=== PATIENT | female | born 2000 | race Caucasian/White ===

== ENCOUNTER 2023-11-07 08:00 | Outpatient (RCR) | payer OTHER, SELFPAY ==
--- NOTE | 2023-11-07 10:15 | BH.SGPN.GN ---
Behaviors/Verbalizations/Mental Status: [] Eye contact is fair. Motor activity is appropriate. Appearance is casual. Speech is Appropriate. Mood is anxious. Affect is congruent. Thoughts are linear and logical. No evidence of psychosis. Client Response/Progress/Benefit: [] Pt was an engaged participant AEB listening attentively to others, taking notes, and providing feedback in small group discussions. Attentive during psychoeducation AEB by note taking and providing some input. Pt worked along with peers in small groups to define inappropriate guilt and appropriate guilt. Interactive discussion on examples of both inappropriate and appropriate guilt. Pt able to connect impact inappropriate guilt can have on MH. Benefited from increased awareness of guilt and the differences between appropriate and inappropriate guilt. Pt's first day in PHP. Will continue in PHP to maintain safety, improve daily functioning, and prevent decompensation.
--- NOTE | 2023-11-07 11:15 | BH.SGPN.GN ---
Behaviors/Verbalizations/Mental Status: []Pt alert and oriented, casually dressed and groomed. Eye contact good. Motor activity appropriate. Speech within normal limits. Affect congruent, mood depressed. Thoughts linear, logical, no signs of hallucinations or delusions. Client Response/Progress/Benefit: [] Pt engaged participant AEB listening attentively to others and providing input throughout group. Pt worked within their small group to identify strategies to manage inappropriate guilt. Shared a personal example of inappropriate guilt as feeling guilty for taking time off work to address her mental health sx. Insight this cues a fear of disappointing others and leads to overcompensating and becoming overapologetic. Pt wants to work on combatting inappropriate guilt by reframing her negative self-talk and focusing on self-compassion. Pt seemed to benefit from learning about strategies to manage appropriate and inappropriate guilt. Pt will continue PHP tx to reduce depressive symptoms, improve daily functioning, maintain safety, and prevent decompensation. Narrative Note: []
--- NOTE | 2023-11-07 15:30 | BH.MDN_ITS ---
Multi-Disciplinary Note Note 45-min Individual: Time Started:: 12:00 Date: 11/07/23 Purpose of session/treatment goals addressed:: Purpose of session was to assess pt's current symptoms and stressors, gather background information, and prevent decompensation. Eye Contact:: Good Motor Activity:: Restless Appearance:: Casual Speech:: Appropriate Mood:: Anxious Affect:: Congruent Thoughts:: Linear, Logical and No evidence of hallucinations/delusions noted Staff Interventions:: CBT techniques, rapport building, strengths perspective, treatment planning and goal setting Client Response:: Pt reported she was referred to [facility] as part of her discharge plans from [facility] following her suicide attempt via 50 pills of Effexor. Pt stated she was admitted to ICU on she believes 10/27/23 and discharged on 11/01/23. Pt reported she was in the ICU for 2 days and on the medical floor for 3 more days following her suicide via overdose with her Effexor. Pt reported she was not hospitalized on the psychiatric unit because she was no longer activ lisbeth suicidal once she was officially medically cleared. Pt stated her mental health has been declining for the last 6 months. Pt reported the day before she attempted suicide she has the worst day of my life . Pt stated she had been sleep deprived, had a tough day at work, and had 2 panic attacks in front of co- workers. Pt reported she was sent home from work that day because she couldn't manage her emotions. Pt stated the next night is when she attempted suicide because she had convinced herself she had ruined a job that she loves. Pt reported since being released from the hospital she has been feeling less depressed and not having suicidal thoughts. Pt stated she has noticed an increase in her anxious symptoms. Pt reported she has been doing better with getting things done around her house the last 5 days. Pt stated while she is in [facility] she would like to learn how to manage stress better and to work on decreasing her self-hatred. Risks/Concerns:: Pt denies active suicidal ideation, plan, or intention since discharge from hospital last week. Feels able to maintain safety. Does not have access to lethal means. Firearms have been removed from the home and her fianc? has locked up the medications. Pt reported having healthy support system. Progress Toward Goals/Plan:: Progress noted AEB pt reporting no active suicidal thoughts in the last 5 days and decreased depression since discharging from the hospital. Pt appears motivated to learn new skills and to get better. Pt reported increase in her anxious symptoms. Stated improvement in motivation and completing chores. Pt stated she is having some concentration and memory issues, which the hospital told her is a short term side effect from the overdose. Pt is to continue PHP to improve daily functioning, maintain safety, and prevent decompensation. Time Stopped:: 12:50
--- NOTE | 2023-11-07 15:30 | BH.PSA ---
Source of Information Presenting Problems/Circumstances Problems, Referral Source, Mental Status, Client: Pt referred to [facility] by inpatient hospital, [facility], as part of her discharge plans post suicide attempt. Pt stated she was admitted to ICU on she believes 10/27/23 and discharged on 11/01/23. Pt reported she was in the ICU for 2 days and on the medical floor for 3 more days following her suicide via overdose with her Effexor. Pt reported she was not hospitalized on the psychiatric unit because she was no longer actively suicidal once she was officially medically cleared. Pt stated her mental health has been declining for the last 6 months. Pt reported the day before she attempted suicide she has the worst day of my life . Pt stated she had been sleep deprived, had a tough day at work, and had 2 panic attacks in front of co-workers. Pt reported she was sent home from work that day because she couldn't manage her emotions. Pt stated the next night is when she attempted suicide because she had convinced herself she had ruined a job that she loves. Pt Past Psychiatric History MH Treatment Hx Treatment History: Hasn't been in counseling since she was 15 years old. Started seeing a provider for psych meds about 2 years ago. First hospitalization:: Age 12 [facility] for suicidal ideation. Most recent hospitalization:: Age 14 [facility] for suicide attempt for OD ECT Therapy:: No Describe (age, circumstance, etc) any past hospitalizations: Pt states from ages 12 to 14 years old she was hospitalized about 5-6 times for suicidal ideation. Pt stated her last hospitalization as an adolescent was a suicide attempt in which she took pills and was on ICU for 2 days. Pt reported she did attempt suicide less than 2 weeks ago, but was not hospitalized on the psychiatric unit. Development & Family of Origin Childhood Significant Childhood Events: States her parents were older and has an old school mentality about mental health. Pt states she felt emotionally neglected as a child, especially from her dad. Pt reports she was not close to either parent when she was growing up. Pt states her parents told her to get over her mental health struggles and believed at the time she was struggling as a way to get attention. Family Who currently lives in your home?: Lives with fianc? Describe family composition:: The patient was born and raised in [place]. She was never close with her parents because she felt they were like roommates rather than family. Her father neglected her emotionally and both parents believe she was faking her mental health symptoms to get attention. She is a middle child has 1 brother 1-year-old and a sister 1 year younger than her and got along with them. She says her relationship with her parents has improved lately and she does have contact with them. She lives with her fianc? and cats and he is supportive of her. Family History Family Hx of Psychiatric or AOD Problems: [] Patient states her family has a lot of mental health issues but they are mostly undiagnosed. Father has depression and anxiety. Sister has severe OCD and anxiety. Brother has depression and substance abuse issues for which he has been to rehab several times. No completed suicides in the family. Ethnicity Culture Do you identify yourself with any particular cultural, ethnic background, or community?: No Sexuality Sexual Orientation: Heterosexual Spirituality Mormon Do you currently identify with any organized christianity?: None Beliefs Is there a particular form of support from this community you can use for your recovery?: No Mental Status Memory Recent Memory: Poor Remote Memory: Poor Concentration Concentration: Poor Eye Contact Eye Contact: Fair Speech Speech: Articulate Thought Process Thought Process: Logical Insight: Fair Judgment: Fair Behavior: Anxious Orientation Orientation: Time, Person, Place and Situation Mood Mood: Anxious Affect Affect: Alert Suicide Assessment Suicidal Ideation Have you ever felt like hurting yourself?: Yes Suicidal Intentional Rating Scale (SIRS): Suicidal thoughts (past) Physician Notification Violent Behavior/Abuse History Homicidal Ideation Do you have any homicidal thoughts? If so, explain:: No Is there a known potential victim? If yes, who:: No Abuse Have you ever been abused?: No Safety Do you ever feel threatened in your home? If yes, describe:: No Adult Social History Age 17 to Present Describe your current support system:: States fimaya?, work friends, and her family are her support network. Substance Use Substance Substance Use Type: Alcohol, Marijuana, Tobacco and Caffeine Specific Drugs What specific drugs have you used?: Patient vapes nicotine daily and smokes cigarettes only on occasion socially. For about 6 months prior to her recent psych admit on October 28, 2023 the patient was drinking for 5 days a week and was drinking 3-6 shots of hard liquor each day. She denies blackouts, morning drinking or withdrawal. She has no liquor in the house now and drinks only 1 or 2 glasses of wine or 2 beers since out of the hospital. She was using THC Gummies and vaping marijuana before her admission but has not used any since then. No rehab ever and no other drugs. 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 Service Service Have you ever been in the ?: No Legal History Records Have you had any past legal charges?: No Do you have any current legal charges?: No Have you ever been incarcerated? If yes, describe:: No Court Orders Have you had any past court orders for psychiatric treatment?: No Do you have a present court order for psychiatric treatment?: No Problem Checklist Current Problem Areas Problem List: Depressed mood/sad, Anxiety, Inattention, Impulsivity and Substance use (has decreased alcohol use significantly since d/c from hospital. Hasn't used marijuana since d/c from hospital. 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 The patient took about 50 Effexor capsules on October 28 and was admitted to the ICU for 2 days and then in the stepdown unit for a number of days. She had a seizure due to the serotonin syndrome. She was not admitted to psychiatry as she they felt she was safe to going to [facility] by the time she got out of the stepdown unit Patient states that for 6 months she has had these depressive symptoms that she feels were made worse by stresses at work and decreased sleep due to working three 12-hour shifts in a row. She has been on FMLA since her suicide attempt which she stated was triggered by having panic attacks in front of her coworkers at work 1 day. Prior to the overdose she was sleeping 15 to 20 hours/day due to her depression. She has not been suicidal since she got out of the hospital. Concentration has been decreased and she has occasional hopelessness, worthlessness endorses guilt. She denies any PTSD symptoms like flashbacks, avoidance or hypervigilance. She does admit to thoughts of self-harm and she last cut herself 1 month ago. Treatment Plan Recommendations Recommendations Guidelines Recommendations:: The patient will start the Partial Hospitalization Program in behavioral health at [facility] as the structure, support, education and group therapy will hopefully prevent worsening of the patient's symptoms that could require rehospitalization.
--- NOTE | 2023-11-07 15:31 | BH.MTP_ITS ---
Master Treatment Plan Patient Information Program Physician:: Dr. Pathak Primary Therapist:: Casi Ohara, [facility] Psychiatric Diagnoses Psychiatric Diagnoses:: 1. Major depressive disorder recurrent severe without psychosis 2. Generalized anxiety disorder 3. Alcohol use disorder 4. Chronic tic disorder Diagnosis Code(s):: F33.2 Estimated LOS Estimated LOS (in weeks):: 2 Problem/Goal #1 Problem/Goal #1 Stated Goal:: Client will decrease depressive symptoms, isolation, and agitation due to Major Depressive Disorder. Description of Barriers: Potential barriers include hx of unresponsiveness to medications, perfectionism, high expectations, anxious thoughts, and cognitive distortions. Functional Impact: The patient is a 23-year-old single female with a history of depression, anxiety, chronic tic disorder who was referred to the [facility] behavioral health PHP by [facility] due to a recent psychiatric admit (October 28 to November 01, 2023) for depression and a suicide attempt. Patient states that for 6 months she has had these depressive symptoms that she feels were made worse by stresses at work and decreased sleep due to working three 12-hour shifts in a row. She has been on FMLA since her suicide attempt which she stated was triggered by having panic attacks in front of her coworkers at work 1 day. Prior to the overdose she was sleeping 15 to 20 hours/day due to her depression. She has not been suicidal since she got out of the hospital. Concentration has been decreased and she has occasional hopelessness, worthlessness endorses guilt. Objectives Objective #1: Stated Objective: Client will learn and utilize 2-3 healthy coping strategies to manage depressive symptoms. Interventions: Therapist will utilize CBT techniques to assist client with understanding the connection between thoughts, feelings and behaviors. Education will be provided on behavioral activation. Therapist will assist client in learning internal coping strategies to manage depressive symptoms, along with helping client identify triggers. Discharge Criteria: Client will have achieved this goal when can verbalize and has practiced at least 2 healthy coping strategies that successfully manage depressive symptoms. Target Date: 11/17/23 Objective #2: Stated Objective: Client will work with therapist to develop a crisis plan which includes emergency telephone numbers, 3-4 coping strategies for SI, lists of supports, positive aspects of life, and motivations. Interventions: Therapist will provide patient with safety plan worksheet and work with pt. to develop individualized plan. Discharge Criteria: Client will have achieved this goal once completes safety plan and is able to utilize coping and thought replacement strategies. Target Date: 11/17/23 Problem/Goal #2 Problem/Goal #2 Stated Goal:: Stabilize anxiety level while increasing ability to function on daily basis. Description of Barriers: Potential barriers include hx of unresponsiveness to medications, perfectionism, high expectations, anxious thoughts, and cognitive distortions. Functional Impact: The patient is a 23-year-old single female with a history of depression, anxiety, chronic tic disorder who was referred to the [facility] behavioral health PHP by [facility] due to a recent psychiatric admit (October 28 to November 01, 2023) for depression and a suicide attempt. Patient states that for 6 months she has had these depressive symptoms that she feels were made worse by stresses at work and decreased sleep due to working three 12-hour shifts in a row. She has been on FMLA since her suicide attempt which she stated was triggered by having panic attacks in front of her coworkers at work 1 day. Prior to the overdose she was sleeping 15 to 20 hours/day due to her depression. She has not been suicidal since she got out of the hospital. Concentration has been decreased and she has occasional hopelessness, worthlessness endorses guilt. Objectives Objective #1: Stated Objective: Client will learn and implement 2-3 calming skills to reduce overall anxiety and manage anxiety symptoms. Interventions: Therapist will teach calming/relaxation skills and how to apply these skills to everyday life. Discharge Criteria: Client will have achieved this goal when can verbalize and consistently utilize at least 2 calming strategies that client reports help decrease anxious symptoms. Target Date: 11/17/23
--- NOTE | 2023-11-08 09:05 | BH.SGPN.GN ---
Behaviors/Verbalizations/Mental Status: [Patient was alert and oriented, appropriately dressed and groomed. Eye contact was good, motor activity normal, speech within normal limits. Affect congruent, mood anxious. Thoughts linear, logical, no signs of hallucinations or delusions. Reviewed Patients symptom tracker and the patient reports depressed mood, anxiety/panic attacks, agitation/irritability/anger, self-harm urges, and thoughts/risk of suicide within normal limits.] Client Response/Progress/Benefit: [Patient was engaged and open to the discussion. Patient reported her mood to be ?Uneasy?. Patients wins and stressors all go together. Patient stated that yesterday she had company come over and help her and her fianc? clean the upstairs of her house and did 7 loads of laundry that had been sitting for ?months?. Patient admitted that she flipped out on her fianc? because he did something that made her suddenly feel as if her cats lives were at stake although she said she ?knows that was an overreaction?. She shared that she wanted to be honest with the group and tends to lie about things, so people won?t worry about her so by telling us that was big. She shared that she felt so ashamed for her reaction that she ?put herself in timeout? and laid in bed for hours and cried until she fell asleep. Patient was interactive and respectful with other group members about their mental wins and stressors. Patient benefited from the discussion by listening to feedback and giving input on her peer?s stressors and mental health wins. Patient will continue with IOP treatment to help develop healthy skills, promote mood stability, and improve distress tolerance. ] Narrative Note: []
--- NOTE | 2023-11-08 10:45 | BH.NA_ITS ---
Physical Data Vital Signs Pulse Rate: 74 Blood Pressure: 146/86 Height/Weight Height: 1.65 m Weight:: 68.039 kg Weight in Pounds: 150.0 lbs Current Medication Compliance Medication Compliance Do you take your medication as prescribed?: Yes Nutritional History Appetite Nutritional Instructions: Describe your appetite:: Fair Additional nutritional information:: Client states she lost about 5 lbs during her recent hospitalization and admits she does have a tendency to skip meals. Functional Assessment Sleep Pattern Describe any problems with sleeping: Client states since her discharge from the hospital a week ago, she is sleeping about 8 hours per night. Activities Motor Activity:: Other (client states she does have some jerking motions of her legs at times) Sensory/Communication Assess Vision Problems Do you have any vision problems?: Glasses Communication Problems Do you have difficulty understanding what people are saying?: No Medical Problems/History Cardiac Conditions Cardiovascular: Other (See comments) (high cholesterol- not on medication) Neurological Conditions Neurological: Other (See comments) (recently worked up neurologically for weakness/tingling/jerking in legs- MS was ruled out, no diagnosis given. Client states she still has some jerking at times with legs but states overall weakness/tingling in legs has gone away.) Pain Assessment Do you have acute or chronic pain?: No Surgical History Surgical History Have you had any surgeries? If so, list type and date:: Yes (wisdom teeth, left breast biopsy 2019) Substance Abuse Substance Abuse Please describe substance abuse in the last 30 days:: Client states prior to being in the hospital, she was using alcohol 3-4 days per week, 2-3 shots of liquor as a coping mechanism. Client states she no longer has liquor at home, states now since her discharge a week ago she has had 1-2 beers or glasses of wine about 4 days this week. Client states she vapes nicotine daily and at times does smoke cigarettes. Client denies current substance use, stating she had been using THC gummies but no longer does. Client drinks 1-3 cups of coffee per day. Mental Status Summary Mental Status Significant Findings/Observations on Appearance and Mood:: Client is alert and oriented x 4. Client is casually groomed with good hygiene. Client is cooperative with assessment. Client makes good eye contact. Client's voice has normal rate and volume. Client has appropriate affect. Client makes logical associations and normal processing. Client denies delusions/hallucinations. Client denies current SI. Suicide Assessment Suicidal Ideation Are you currently or have you been suicidal in the past?: Yes Suicidal Intentional Rating Scale (SIRS): Suicidal thoughts (past) (denies current SI, does states she had self-harm thoughts last night but did not) Physician Notification Past Psychiatric History MH Treatment Hx Past Psychiatric Medications:: Effexor (recently in the hospital due to overdose), SSRI's as an adolescent (client states she never remembers any of them working well), Cymbalta and Lamictal (she states didn't help at all), Abilify, Wellbutrin Age of first mental health symptoms: Client states she had several mental health hospitalizations as a teenager and was first on medication for mental health at that time. Describe (age, circumstance, etc) any past hospitalizations: Recently in ICU/medical floor at [facility] 10/28-11/01/23 after a suicide attempt by Effexor overdose. Current providers for mental health treatment (counselor, psychiatrist, social work case manager, etc.): Dr. Anup Caban at [facility] Fall Risk Assessment Age Age: Less than 60 Mental Status Mental Status: Willing & able to ask for assistance when needed Physical Status Physical Status: No problems Impairments Impairments: None Elimination Elimination: Continent AND independent Gait or Balance Gait or Balance: Walks independently Hx of Falls History of falls in the past 6 months: No known history Medications/Substances Psychotropics:: Antidepressants and Antipsychotics Medications/substances used within the past 24 hours or ordered to administer: 1-2 of the medications/substances listed above Total Score Total Points:: 1 RN Summary of Impressions Impressions Recommendations Impressions: Psychiatric Issues: 1. Major depressive disorder recurrent severe without psychosis 2. Generalized anxiety disorder 3. Alcohol use disorder 4. Chronic tic disorder Level of Care How do the client's current symptoms and functional deficits support need for this level of care?: Client was referred to [facility] after a recent hospitalization due to a suicide attempt by overdose of Effexor. 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 Client states she had several panic attacks at work in one day and had to leave work and was embarrassed that all her co-workers saw her crying and upset and felt like no one would respect her after that. This event triggered her suicide attempt. Client states for the last 4-6 months, she feels she has been very sleep deprived, working three 12 hour shifts in a row and only sleeping up to 3-4 hours between shifts. Client also states she had been using THC gummies and using several shots of liquor on her days off to cope. Client states she is using less alcohol now and completely got rid of the THC gummies. Client denies SI at this time. IOP will promote gains and prevent further decompensation while providing social support and skills training.
--- NOTE | 2023-11-08 11:10 | BH.SGPN.GN ---
Behaviors/Verbalizations/Mental Status: []Pt alert and oriented, neatly dressed and groomed. Eye contact good. Motor activity appropriate. Speech within normal limits. Affect constricted, mood depressed. Thoughts linear, logical, no signs of hallucinations or delusions. Client Response/Progress/Benefit: []Pt responded well to session, engaged in the experiential activity and attentive throughout group processing. Pt reported fear of failure has kept Pt getting mental health tx in the past and from starting medications. Pt completed fear of failure worksheet and was able to identify thoughts and behaviors that reinforce personal fear of failure including self-doubt, past failures, and negative/distorted thought patterns. Pt participated in group discussion regarding strategies to overcome fear of failure. Identified wanting to work on practicing setting boundaries at work, reminding herself that she cannot ?do it all.? Appeared to benefit from increased knowledge of strategies to combat fear of failure and gaining self-awareness. Pt will continue PHP tx to prevent rehospitalization and maintain safety. Narrative Note: []
[2023-11-08 11:33] VITALS: BP 146/86; PULSE 74
--- NOTE | 2023-11-08 11:58 | PCM.BH.PSYEV ---
Psychiatric Evaluation Initial Evaluation Initial Evaluation: History of Present Illness: [] The patient is a 23-year-old single female with a history of depression, anxiety, chronic tic disorder and recent bipolar disorder diagnosis who was referred to the [facility] behavioral health [facility] by [facility] due to a recent psychiatric admit (October 28 to November 01, 2023) for depression and a suicide attempt. The patient took about 50 Effexor capsules on October 28 and was admitted to the ICU for 2 days and then in the stepdown unit for a number of days. She had a seizure due to the serotonin syndrome. She was not admitted to psychiatry as she they felt she was safe to going to [facility] by the time she got out of the stepdown unit. Patient states that for 6 months she has had these depressive symptoms that she feels were made worse by stresses at work and decreased sleep due to working 312-hour shifts in a row. She has been on FMLA since her psych admission as her suicide attempt was triggered by having panic attacks in front of her coworkers at work 1 day. Patient currently lives with her fianc? of 18 months and her cats. Their relationship is good and he is supportive of her and he also works as a psychiatry nurse. 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 For primary support she has her fianc?. Patient is currently enjoying her friends and the idea of her work. She is getting about 8 to 10 hours of sleep at night. Prior to the overdose she was sleeping 15 to 20 hours/day due to her depression. She drinks 1 to 2 cups of coffee per day. Concentration has been decreased and she has occasional hopelessness, worthlessness endorses guilt. She also is a worrier by nature and ruminates negatively. She denies passive thoughts of , suicidal ideation, plan for suicide, homicidal ideation, hallucinations, delusions or symptoms of otto ever. She has not been suicidal since she got out of the hospital. She has a history of a chronic tic disorder which involves only physical tics mostly with her hands but this has not been severe lately. She has no auditory tics. She has some OCD tendencies but does not meet criteria for OCD although she has some preoccupation with order and checking at times. The patient states that her father was neglectful of her during childhood and did not emotionally support her. She says that her father's thought she was faking her mental health symptoms when she was young and told her she needed to stop . She denies any PTSD symptoms like flashbacks, avoidance or hypervigilance. She does admit to thoughts of self-harm and she last cut herself 1 month ago. The patient's fianc? gives her her medications and she does not have access to a large amount of medications. Current Psychiatric Medications: [] Latuda 20 mg p.o. with dinner daily (x 8 or 9 days); Prozac 20 mg p.o. daily (x 8 or 9 days); hydroxyzine 50 mg as needed for sleep/anxiety. Past Psychiatric History: [] The patient had 1 psych admit as noted above in 2023 and she had 5 psychiatric admissions between the ages of age 12 and 14. She also had a suicide attempt in 2019 by an overdose on Klonopin. She has a history of self-harm cutting her arms and thighs and first cut at age 11 but has gotten less that she has gotten older. She has never had stitches. Past psych meds include all the SSRIs as a teenager and Wellbutrin and Abilify. Substance Use History: [] Patient vapes nicotine daily and smokes cigarettes only on occasion socially. For about 6 months prior to her recent psych admit on October 28, 2023 the patient was drinking for 5 days a week and was drinking 3-6 shots of hard liquor each day. She denies blackouts, morning drinking or withdrawal. She has no liquor in the house now and drinks only 1 or 2 glasses of wine or 2 beers since out of the hospital. She was using THC Gummies and vaping marijuana before her admission but has not used any since then. No rehab ever and no other drugs. Allergies: [] Bactrim Medications: [] Jessica for allergies, control pill, vitamin D3, omega-3 and women's vitamin. Past Medical History: [] She had a breast biopsy in 2019 which was benign. High cholesterol. Seasonal allergies. Serotonin recently as noted in present illness. Up-to-date on vaccinations. Family Psychiatric History: [] Patient states her family has a lot of mental health issues but they are mostly undiagnosed. Father has depression and anxiety. Sister has severe OCD and anxiety. Brother has depression and substance abuse issues for which he has been to rehab several times. No completed suicides in the family. Personal/Social History: [] The patient was born and raised in [place]. She was never close with her parents because she felt they were like roommates rather than family. Her father neglected her emotionally and both parents believe she was faking her mental health symptoms to get attention. She is a middle child has 1 brother 1-year-old and a sister 1 year younger than her and got along with them. She says her relationship with her parents has improved lately and she does have contact with them. She states they now know she is not faking her symptoms. She lives with her fianc? and cats and he is supportive of her. He is also working as a psych nurse. 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 She has worked at [employer] in [place] for over 2 years. She is single with no children and has never been or . She was perfectionistic but school was always easy for her. But she states that her OCD tendencies and perfectionism tendencies would make it take a long time for her to finish her homework. She graduated from [employer] and [employer] with a degree in nursing. For primary support she has her coworkers, sister, mom and fianc?. Legal History: [] No arrests. 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 No DUIs. Review of Systems: [] Positive for occasional dizziness after the recent overdose. She has occasional lower extremity muscle pain and soreness. Last menstrual period was October 31 and she has regular menstrual periods and is sexually active with her fianc?. She is 0 para 0 female. Vital Signs: [] Vital signs are reviewed in the nurses notes and updated in the patient is deemed medically able to participate in the [facility] program. Mental Status Examination: [] Patient is a 23-year-old female who wears glasses and appears normal for stated age and is casually dressed and groomed with good hygiene. She has no psychomotor agitation or retardation and is ambulatory with a normal gait. Speech is normal rate and rhythm and fluent with no pressure and eye contact is fair. Mood is depressed and anxious. Affect is constricted. Thought process is goal-directed and organized. Thought content: There is no evidence of passive thoughts of , suicidal ideation, plan for suicide, homicidal ideation, hallucinations or delusions. There is evidence of thoughts of self-harm but no actions on this. Reality testing is intact. Intelligence is above average. Judgment is intact. Insight is fair. Impulsivity is moderate. Diagnoses: [] 1. Major depressive disorder recurrent severe without psychosis 2. Generalized anxiety disorder 3. Alcohol use disorder 4. Chronic tic disorder 5. Work issues Plan: [] The patient will start the IOP in behavioral health at [facility] as the structure, support, education and group therapy will hopefully prevent worsening of the patient's symptoms that could require rehospitalization. She felt safe during the interview and if it anytime she does not feel safe she will let us know or go to the emergency room. The risk, options, possible complications and side effects of the medications were discussed with the patient and she understands accepts these. No medication changes were made today as they were changed only 9 days ago following her overdose on Effexor. At some point I might consider Prozac's long half-life to be not the best choice for patient with 2 suicide attempts by overdose and recent serotonin syndrome as the long half-life of Prozac would prolong the serotonin syndrome if she did overdose. The patient states that her fianc? is a psych nurse and he gives her medications so she is not worried about this. She will continue to follow-up with her outpatient providers and I will see the patient in follow-up in 1 week.
--- NOTE | 2023-11-08 12:13 | BH.DR.ITP ---
Initial Treatment Plan Patient Information Visit Information: ADMISSION DATE: EXPECTED LOS: 4-6 weeks Problems/Symptoms Problem #1:: Depression Symptom:: Sadness, hopelessness, worthlessness, guilt, decreased concentration, biological disruption of sleep, recent passive thoughts of and recent suicidal ideation, thoughts of self-harm Problem #2:: Anxiety Symptom:: Worry, rumination, panic attacks
--- NOTE | 2023-11-08 14:48 | BH.MDN ---
Multi-Disciplinary Note Note 60-min Individual: Time Started:: 12:05 Date: 11/08/23 Purpose of session/treatment goals addressed:: Purpose of session was to address goals 1 and 2 from [facility]. Eye Contact:: Good Motor Activity:: Appropriate Appearance:: Casual Speech:: Appropriate Mood:: Dysthymic Affect:: Congruent Thoughts:: Linear, Logical and No evidence of hallucinations/delusions noted Staff Interventions:: thought challenging, psychoeducation on: (cognitive triangle, behavior activation, and core beliefs), CBT techniques, rapport building, strengths perspective, completed risk assessment / safety planning (completed crisis plan in session), goal setting and other (homework provided to complete provided questionnaire about mistaken beliefs.) Client Response:: Client responded well to session as evidenced by openly sharing thoughts and feelings. Client reported yesterday she had a rougher afternoon/evening because she was more irritable and snapped at her fianc?. Client shared she can be very protective of her cats and when he was cleaning she thought he was putting the cleaning stuff on her cats so she snapped at him. Client stated she went upstairs because she was upset with herself. Client stated she was able to recover quicker than usual initially by going down apologizing to her fianc?. However after apologizing and her fianc? accepting the apology and recognizing that she is more irritable with the medication changes she still feels extreme guilt. Client stated appropriate guilt turned into inappropriate guilt and she punished herself for the next 6 hours by laying in bed and self-deprecating. Client reported in the moment she recognized what she was doing would not be helpful but she stated she has extreme difficulty with making herself get out of bed to do something that would be more helpful for her. Client reported she was having negative thoughts that she should not come back to [facility] because it will help her and she should just lie about how she is doing. Client stated on a positive note she did decide to come back to [facility] today and was honest about how her evening went. Client connected to psychoeducation about cognitive triangle and behavior activation. Client reported she was not sure what would help her with opposite action when she is in a downward spiral. Therapist attempted to help her problem solve and brainstormed various solutions or strategies and encouraged client to just try out different ones until she finds when that works. Client did connect with dialectical thinking especially the statement I can be struggling and progressing. Client engaged in discussion about negative core beliefs and willing to complete provided questionnaire to help her identify her mistaken beliefs. Client worked with therapist to complete a crisis/safety plan that can help her in the moment. Client able identify triggers, warning signs, healthy coping skills, reasons for living, supports can reach out to, reduction of lethal means, and crisis support numbers. Client reports she did not have a safety plan because when she was discharged from the hospital she was discharged from the medical side and not the psychiatric side. Risks/Concerns:: Denies active suicidal ideation, plan or intention. Future oriented. Identifies family and cats as protective factor. Client completed crisis plan today. No access to lethal means. Progress Toward Goals/Plan:: Client reported slight decompensation in symptoms as evidenced by experiencing low and depressed mood yesterday after irritable lash out. Client stated she does struggle with getting herself out of depressed moments because she admitted at times she likes to wallow in the negativity. Client stated she logically recognizes sitting in her depressed mood will not be helpful. Client did seem a little hesitant to try out new strategies or solutions when she is in a depressed state. Therapist attempting to use motivational interviewing as strategy to increase client's motivation to follow through with new skills and strategies. Client to continue PHP to maintain safety, increase healthy coping, and prevent decompensation. Time Stopped:: 13:00
--- NOTE | 2023-11-09 09:00 | BH.SGPN.GN ---
Behaviors/Verbalizations/Mental Status: [] Eye contact is good. Motor activity is appropriate. Appearance is casual. Speech is Appropriate. Mood is depressed/irritable. Affect is congruent. Thoughts are linear and logical. No evidence of psychosis. Reviewed daily check in sheet and no reports of suicidal ideations or intent. Client Response/Progress/Benefit: [] Pt participated at times during the group discussion. Attentive. Shared that cried and isolated and snapped at her fiance recently and has noticed that her mood is erratic since medication changes a couple weeks ago with increased irritability. She was struggling yesterday with her emotions and ruminations however was able to change her perspective during psychoeducation group yesterday. Insight that she can have a bad moment and struggles and still be progressing. Challenging cognitive distortion of absolute thinking. This perspective change led to reframing thoughts and improved overall mood and view of herself. Progress noted per pt report. Benefited from group support, encouragement, and feedback. Will continue in PHP to maintain safety, prevent decompensation/readmission to psych unit, and to improve functioning to return to work. Narrative Note: []
--- NOTE | 2023-11-09 10:10 | BH.SGPN.GN ---
Behaviors/Verbalizations/Mental Status: []Pt alert and oriented, casual appearance. Eye contact fair. Motor activity appropriate. Speech within normal limits. Affect congruent, mood anxious. Thoughts linear, logical, no signs of hallucinations or delusions. Client Response/Progress/Benefit: [] Client engaged participant AEB completing self-assessment worksheet and providing input throughout discussion. Client completed worksheet identifying current self-care practices and what self-care activities client wants to start using. Client selected emotional and psychological self-care to begin practicing more consistently. Client plans to do this by using opposite action and taking time to do things she enjoys. Appeared to benefit from completing the self-care evaluation and gaining insights into current self-care practices, as well as identifying areas in which client would like to improve upon. Client will continue PHP tx improve daily functioning, increase healthy coping, and prevent decompensation.
--- NOTE | 2023-11-09 11:10 | BH.SGPN.GN ---
Behaviors/Verbalizations/Mental Status: []Pt alert and oriented, appearance appropriate. Eye contact good. Motor activity appropriate. Speech within normal limits. Affect congruent, mood depressed. Thoughts linear, logical, no signs of hallucinations or delusions. Client Response/Progress/Benefit: [] Client engaged participant AEB completing self-assessment worksheet and providing input throughout discussion. Client completed worksheet identifying current self-care practices and what self-care activities client wants to start using. Client selected physical and financial self-care to begin practicing more consistently. Client plans to do this by being more consistent with 3 meals a day and waiting a few days before purchasing something. Appeared to benefit from completing the self-care evaluation and gaining insights into current self-care practices, as well as identifying areas in which client would like to improve upon. Client will continue PHP tx to reduce depression, improve healthy coping repetoire, and prevent decompensation. Narrative Note: []
--- NOTE | 2023-11-09 15:09 | BH.MDN ---
Multi-Disciplinary Note Note 45-min Individual: Time Started:: 12:10 Date: 11/09/23 Purpose of session/treatment goals addressed:: Purpose of session was to address goals 1 and 2 from MTP. Eye Contact:: Good Motor Activity:: Appropriate Appearance:: Casual Speech:: Appropriate Mood:: Euthymic Affect:: Congruent Thoughts:: Linear, Logical and No evidence of hallucinations/delusions noted Staff Interventions:: CBT techniques, rapport building, strengths perspective, goal setting and taught coping skills (Affirmations) Client Response:: Client reported yesterday was a much better day for her. Client stated hearing about dialectical thinking yesterday in group was very useful and changed her perspective for the rest of the day. Client stated the thought I can be struggling and progressing to be a very helpful and motivating statement for her. Client stated yesterday she spent time with her fianc? working on a project around the house that they need to get done. Client reported felt positive to see the outcome of their project and to be able to stay in the moment. Client noted significant improvement in her mood compared to yesterday. Client did complete provided homework of filling out mistaken beliefs questionnaire. Therapist informed client they will look at the results tomorrow. Therapist provided client with handout about various affirmations and client took time in session to highlight the affirmations that she is ready to start working on. Client picked 3 affirmations from the list that she will start saying every day to start building new core beliefs. Client reported she will write the affirmations on her bathroom mirror so that she visually sees in each day and will say them. Risks/Concerns:: Denies suicidal ideation, plan, or intention. Future oriented. Feels able to maintain safety. Progress Toward Goals/Plan:: Progress noted with client being able to challenge her negative thought patterns yesterday. Client starting to work on using dialectical thinking and recognizes that the power and in her statements. Client stated that this will be beneficial because she often struggles with all or nothing thinking. Client does report improved mood since had a positive day yesterday. Client is to continue PHP to maintain safety, increase healthy coping, and prevent decompensation. Time Stopped:: 12:50
--- NOTE | 2023-11-10 09:00 | BH.SGPN.GN ---
Behaviors/Verbalizations/Mental Status: [Patient was alert and oriented, appropriately dressed and groomed. Eye contact was good, motor activity normal, speech within normal limits. Affect congruent, mood content. Thoughts linear, logical, no signs of hallucinations or delusions. Reviewed Patients symptom tracker and the patient reports depressed mood, anxiety/panic attacks, agitation/irritability/anger, self-harm urges, and thoughts/risk of suicide within normal limits.] Client Response/Progress/Benefit: [Patient was engaged and open to the discussion. Patient reported her mood to be ?motivated?. Patients first win is that in the last couple of days, her memory has been improving. She shared that since her overdose, her mind was foggy, and she was unable to retain some information. Patients second win is that she has been able to get herself to do some of her chores that she has been struggling with the past year and a half. Patients stressor is that she is still experiencing irritability. Patient was interactive and respectful with other group members about their mental wins and stressors. Patient benefited from the discussion by listening to feedback and giving input on her peer?s stressors and mental health wins. Patient will continue with IOP treatment to help develop healthy skills, promote mood stability, and improve distress tolerance. ] Narrative Note: []
--- NOTE | 2023-11-10 10:10 | BH.SGPN.GN ---
Behaviors/Verbalizations/Mental Status: []Client alert and oriented, casually dressed and groomed. Eye contact good. Motor activity appropriate. Speech within normal limits. Affect congruent, mood anxious. Thoughts linear, logical, no signs of hallucinations or delusions. Client Response/Progress/Benefit: []Client receptive to session AEB providing input throughout, listening attentively to others, and taking notes. Attentive throughout psychoeducation on the cognitive triangle and maintenance cycles. Engaged in group discussion reviewing the impact of daily activities and behaviors in either reinforcing unhealthy maintenance cycles and depression or assisting in reducing symptoms (?down? vs ?up? activities). Client identified common ?down? activities they engage in as: sleeping past noon, not showering, and using too much alcohol. Common ?Up? activities client identified included:going outside, socializing, and walking. Appeared to benefit from increased awareness of current behaviors and impact these have on mental health. Recommended to continue PHP tx to improve daily functioning, maintain safety, and prevent decompensation.
--- NOTE | 2023-11-10 10:24 | BH.MDN_ITS ---
Multi-Disciplinary Note Note 45-min Individual: Time Started:: 08:15 Date: 11/10/23 Purpose of session/treatment goals addressed:: Purpose of session was to address goals 1 and 2 from MTP. Eye Contact:: Good Motor Activity:: Appropriate Appearance:: Casual Speech:: Appropriate Mood:: Euthymic Affect:: Congruent Thoughts:: Linear, Logical and No evidence of hallucinations/delusions noted Staff Interventions:: CBT techniques, mindfulness skills, rapport building, discharge planning, strengths perspective, goal setting, taught coping skills ([facility]) and other (reviewed mistaken beliefs questionnaire results ) Client Response:: Pt reported yesterday went well with improved mood and ability to manage her emotions. Patient stated she followed through with homework of writing on her bathroom mirror 3 positive affirmations that she wa nts to say to herself daily. Patient reports she believes this will be helpful in recreating different healthier core beliefs. Therapist reviewed client's mistaken beliefs questionnaire results. Client connected with the core beliefs that she scored higher in. Client stated the core belief if I trust or get too close, I will lose control. It is one of her deeply held beliefs which impacts her desire and follow through with with intimacy with others. Client also reported connecting strongly with the core belief I have to be perfect . Client stated her needing to be perfect in certain areas of life have led to her to overwork, overcompensate, and engage in negative self-talk when she makes mistakes. Client also connected with core belief my worst insecurity depend on the approval of others. Client stated this core belief leads her to try to put others first at that because of her own mental health and has difficulty setting boundaries or saying no. Client stated the latter thought she intellectually knows are not true but continues to emotionally and behaviorally impact her. Client connected with psychoeducation about how setting boundaries can be a behavioral way of challenging some of his core beliefs because it helps her see the importance of taking care of herself and not putting herself in the back burner. Client stated positive affirmations she had chosen and wrote on her mirror could also help with creating new internal thought patterns about herself. Stated she will start the [employer] journal this weekend. Risks/Concerns:: Denies suicidal ideation, plan, or intention to date. future oriented. Progress Toward Goals/Plan:: Progress noted with client reporting improved motivation, decreased depression, no active suicidal ideation, and improved daily functioning the last 3 days. Pt also noted improvement with being able to recover from having depressed and isolative evening on Monday this week. Plan is for pt to continue PHP on Monday and Monday next week and admit to IOP on Monday. Pt is to continue PHP to maintain gains, increase healthy coping, and prevent decompensation. Time Stopped:: 08:59
--- NOTE | 2023-11-10 11:15 | BH.SGPN.GN ---
Behaviors/Verbalizations/Mental Status: [] Eye contact is good. Motor activity is appropriate. Appearance is casual. Speech is Appropriate. Mood is depressed. Affect is congruent. Thoughts are linear and logical. No evidence of psychosis. Client Response/Progress/Benefit: [] Pt responded well to session, attentive and engaged in group discussions and activity. Group discussed values and the benefits that knowing one's values can have on one's mental health. Pt explored own values and identified personal top values. Pt stated a personally important value is family relationships. Client set a goal to improve engagement in this value. Goal identified as opening up to her family about her mental health on a more regular basis. Pt appeared to benefit from exploring values and creating a weekly goal. Will continue in PHP to improve application of healthy coping skills, promote mood stability, and prevent decompensation. Narrative Note: []
--- NOTE | 2023-11-13 09:05 | BH.SGPN.GN ---
Behaviors/Verbalizations/Mental Status: [Patient was alert and oriented, appropriately dressed and groomed. Eye contact was good, motor activity normal, speech within normal limits. Affect congruent, mood stressed. Thoughts linear, logical, no signs of hallucinations or delusions. Reviewed Patients symptom tracker and the patient reports depressed mood, anxiety/panic attacks, agitation/irritability/anger, self-harm urges, and thoughts/risk of suicide within normal limits.] Client Response/Progress/Benefit: [Patient was engaged and open to the discussion. Patient reported her mood to be ?uneasy and stressed?. Patient reported this weekend was a ?terrible weekend?. Patient shared that her stressors are that she got a letter in the mail saying that her hospital visit from her overdose was not going to be covered by insurance because it was ?medically unnecessary?. Patient said after contacting the hospital they stated there as a mistake, and it should be taken care of but the toll those emotions took before finding out were draining. Patient also shared that 3 of her aquatic pets have in the past 3 weeks and found out something in the city water changed and must have killed them. She stated she felt guilty about this although she knows its not her fault. These emotions she reported made her ?freak out? on her fianc? ?worsen than she ever has before?. Patient identified her wins to be that she was communicating her emotions over the weekend as best as she could instead of bottling them up and that she came to group although she felt down. Patient was interactive and respectful with other group members about their mental wins and stressors. Patient benefited from the discussion by listening to feedback and giving input on her peer?s stressors and mental health wins. Patient will continue with IOP treatment to help develop healthy skills, promote mood stability, and improve distress tolerance. ] Narrative Note: []
--- NOTE | 2023-11-13 10:10 | BH.SGPN.GN ---
Behaviors/Verbalizations/Mental Status: [] Eye contact good. Motor activity is appropriate. Appearance is casual. Speech normal. Mood is euthymic. Affect is congruent. Thoughts are linear and logical. No evidence of psychosis. Client Response/Progress/Benefit: [] Client was an active participant in group discussion and participated in activity. Attentive during psychoeducation on resilience. Participated in interactive discussion with peers on the definition of resilience and where it comes from . Group identified that resiliency can be impacted by; past experiences, learned behaviors, and trauma. Group also worked together to identify the benefits of being resilient and how it is related to mental health which included having more diego and becoming stronger. Able to relate experiential activity of group juggle to topics of resilience. Worked well with peers in small group in which they identified factors that contribute to resilience. Benefited from increased awareness of resilience and the factors that contribute to building resilience. Will continue in IOP to prevent decompensation and increase self care. Narrative Note: []
--- NOTE | 2023-11-13 11:10 | BH.SGPN.GN ---
Behaviors/Verbalizations/Mental Status: [] Client alert and oriented, neatly dressed and groomed. Eye contact fair. Motor activity appropriate. Speech within normal limits. Affect congruent, mood euthymic. Thoughts linear, logical, no signs of hallucinations or delusions Client Response/Progress/Benefit: [] Client responded well to session AEB completing the resilience worksheet provided. Client actively participated in the discussion and worked cooperatively with group to identify strategies to enhance each of the components discussed. Client reports belief they already use resilience trait of ?moving towards goals.? Client discussed that they could work on a more positive outlook. Client seemed to benefit from discussing strategies for improving personal resilience and identifying resilience traits client already possesses. Will continue IOP tx to increase self-worth and increase overall functioning. Narrative Note: []
--- NOTE | 2023-11-13 12:00 | BH.MDN_ITS ---
Multi-Disciplinary Note Note 60-min Individual: Time Started:: 12:00 Date: 11/13/23 Purpose of session/treatment goals addressed:: Met to review current symptoms and progress in PHP. Processed stressors and struggles over the weekend. Eye Contact:: Good Motor Activity:: Appropriate Appearance:: Casual Speech:: Appropriate Mood:: Anxious and Irritable Affect:: Congruent Thoughts:: Linear, Logical and No evidence of hallucinations/delusions noted Staff Interventions:: psychoeducation on: (Anger mgmt skills and identifying physiological warning signs. ), CBT techniques (Core beliefs education and challenging), rapport building and other (Allowed pt to vent frustrations) Client Response:: Pt reports decompensation over the weekend which started on Monday evening after she received a bill for her recent hospitalization as her insurance company has denied her hospitalization feeling it was not medically necessary. Now I have to spend extra time figuring this out . 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 She reports increased restlessness, irritability, and anger outbursts since starting Latuda 2 weeks ago, however is apprehensive about stopping the medication because it has benefits . She states since starting the medication she has been constantly moving and motivated. She is up early in the AM and feels compelled to complete tasks which is good however concerned she might be hypomanic or maybe all these changes aren't the medication but the effects of my overdose . She is questioning whether she is Bipolar 2. She is ruminating and putting pressure on herself to find answers as she has been researching her medications. Feels that she has regressed this weekend as she had rage that came out of nowhere towards her BF. I've never had anger issues before stating Latuda . Claims there was no trigger. Utilized unhealthy coping skills gummies and 2 glasses of wine. I'm reverting back to old behaviors . Risks/Concerns:: Denies suicidal ideations, plan, or intent. Daily symptom tracker notes 0/5 for suicidal thoughts. Progress Toward Goals/Plan:: No progress noted. This therapist discussed medication concerns with program psychiatrist Dr. Pathak who recommended that she stop the Latuda as she is reporting side effects on the lowest dose. Pt wants to cut the dose to 10mg as she wants to stay on Latuda and find a med that will help with restlessness, anxiety, and irritability. She is unsure the best course of action and is going to reach out to her outpatient psychiatrist who is more familiar with her. Plan is for Dr. Munguia to meet with pt on Monday. Pt's baseline is depressed however in the past 2 weeks she noted restlessness, increased energy, and less sleep which is not what I'm used too . Somewhat challenging to discuss therapeutic interventions as she is focused on medications at this point however did appear to benefit from reviewing basic co ping skills and allowing her to vent frustrations. She is future-oriented and reports that PHP has been helpful and beneficial noting she has been learning a great deal from psychoeducation groups. Admits that she struggles with put her knowledge and insight into action. Due to recent regression, medication concerns, and pt's request the plan is to remains in PHP this week to stabilize mood, maintain safety, and improve functioning. Time Stopped:: 13:00
--- NOTE | 2023-11-14 09:00 | BH.SGPN.GN ---
Behaviors/Verbalizations/Mental Status: [] Eye contact is good. Motor activity is appropriate. Appearance is casual. Speech is Appropriate. Mood is depressed/irritable. Affect is congruent. Thoughts are linear and logical. No evidence of psychosis. Reviewed daily check in sheet and no reports of suicidal ideations or intent. Client Response/Progress/Benefit: [] Pt was an active participant in group discussion. Attentive. Daily symptom tracker notes 10/23 for depression/irritability. Pt reports that she made a decision to half her Latuda yesterday night due to her irritability. Reports that she feels more content this AM. She discussed her reasoning for decreasing her medication as she finds it helpful for her motivation and depression and doesn't want to completely stop the medication. Significant stress and ruminations regarding her medications. Second guessing her current medications of Latuda and Prozac. Vented frustrations and benefited from empathy and support from peers. Last evening she noted being irritable and isolating stating she wanted to avoid her BF for fear of getting angry at him. After a couple hours of isolating she was able to challenge and reframe her thoughts and eventually utilizing behavior activation and joined her BF. Benefited from group support, encouragement, and feedback. Will continue in PHP to maintain safety, stabilize mood, increase healthy coping, and prevent decompensation/re-admission to psych unit. Narrative Note: []
--- NOTE | 2023-11-14 10:15 | BH.SGPN.GN ---
Behaviors/Verbalizations/Mental Status: []Pt alert and oriented, casually dressed and groomed. Eye contact good. Motor activity appropriate. Speech within normal limits. Affect congruent, mood depressed and agitated. Thoughts linear, logical, no signs of hallucinations or delusions. Client Response/Progress/Benefit: [] Pt responded well to session AEB contributing to small group discussion, taking notes, and listening attentively to others. Group discussed the benefits of managed anger and anger as a secondary emotion. Pt shared perspective on personal benefits of anger as advocating for self. Pt completed worksheet on anger triggers and personal warning signs of anger. Pt identified a common trigger as things not going her way. Appeared to benefit from increased knowledge of the anger cycle as well as personal triggers. Will continue IOP tx to promote mood stability, reduce distorted thought patterns and improve adaptive coping, as well as improve daily functioning. Narrative Note: []
--- NOTE | 2023-11-14 11:15 | BH.SGPN.GN ---
Behaviors/Verbalizations/Mental Status: []Client alert and oriented, casually dressed and groomed. Eye contact good. Motor activity appropriate. Speech within normal limits. Affect congruent, mood anxious. Thoughts linear, logical, no signs of hallucinations or delusions. Client Response/Progress/Benefit: []Pt was engaged throughout AEB contributing to group discussion and self-reflection. Group finished processing cues to anger worksheet. Pt contributed as group brainstormed healthy coping skills for better managing anger which included: music, walking/exercise, taking a break, grounding tools, reflection, and journaling. Pt identified personal anger cycle able to make connections on how own thoughts/evaluations of a situation can worsen anger feelings. Stated will practicing belly breathing and reflection to help manage anger. Pt appeared to benefit from identifying different techniques to manage anger as well as gaining awareness of potential consequences of unmanaged anger. Pt to continue PHP to improve distress tolerance, increase healthy coping skills, and prevent decompensation.
--- NOTE | 2023-11-15 09:05 | BH.SGPN.GN ---
Behaviors/Verbalizations/Mental Status: [Patient was alert and oriented, appropriately dressed and groomed. Eye contact was good, motor activity normal, speech within normal limits. Affect congruent, mood content. Thoughts linear, logical, no signs of hallucinations or delusions. Reviewed Patients symptom tracker and the patient reports depressed mood, anxiety/panic attacks, agitation/irritability/anger, self-harm urges, and thoughts/risk of suicide within normal limits.] Client Response/Progress/Benefit: [Patient was engaged and open to the discussion. Patient reported her mood to be ?neutral and content?. Patients first win was that she got a free quesadilla yesterday from [employer] which ?made her day?. Patients second win is that she advocated for herself when seeing the doctor and was happy with the changes they made. Patients? stressor is that she is nervous for how the medication change will be affecting her. Patient was interactive and respectful with other group members about their mental wins and stressors. Patient benefited from the discussion by listening to feedback and giving input on her peer?s stressors and mental health wins. Patient will continue with IOP treatment to help develop healthy skills, promote mood stability, and improve distress tolerance. ] Narrative Note: []
--- NOTE | 2023-11-15 10:15 | BH.SGPN.GN ---
Behaviors/Verbalizations/Mental Status: [] Eye contact is fair to good. Motor activity is appropriate. Appearance is casual. Speech is Appropriate. Mood is depressed and anxious. Affect is congruent. Thoughts are linear and logical. No evidence of psychosis. Client Response/Progress/Benefit: []Pt engaged participant AEB listening to others, engaging in activity, and providing feedback at times. Attentive during psychoeducation and provided insight into obstacles the impede mental wellness. Pt shared with group current mental health reality and desired mental health reality. Stated she would like to get to a place where she feels more confident in herself and her ability to consistently use healthy skills for managing her mental health sx, as well as improved ability to openly discuss vulnerabilities with her supports. Identified barriers to desired reality include: negative self-talk, distorted thoughts, poor self-confidence, and minimization. Benefited from taking look at current mental health state and obstacles for progress. Pt to continue PHP tx to improve mood stability, reduce unhealthy thinking and coping patterns, and prevent decompensation. Narrative Note: []
--- NOTE | 2023-11-15 11:15 | BH.SGPN.GN ---
Behaviors/Verbalizations/Mental Status: []Pt alert and oriented, neatly dressed and groomed. Eye contact good. Motor activity appropriate. Speech within normal limits. Affect congruent, mood content. Thoughts linear, logical, no signs of hallucinations or delusions. Client Response/Progress/Benefit: []Pt participated in group discussion, drawing, and activity. Worked with group to identify strategies to help overcome barriers and obstacles to desired reality. Group developed strategies for the common barriers of avoidance, feeling burned out, unrealistic expectations, emotional reasoning, and difficulty asking for help. Identified personal barriers to desired reality and choose one obstacle to work on this week which was negative self-talk and low self-esteem. Pt plans to do this by challenging her thoughts and gathering evidence and things she likes about herself. Pt seemed to benefit from group by identifying obstacles and solutions to desired reality. Will continue PHP tx to prevent decompensation, increase emotional regulation skills, and improve self-compassion. ? Narrative Note: []
--- NOTE | 2023-11-15 12:26 | PCM.BH.PN_ITS ---
Progress Note Progress Note: History of Present Illness: [] The patient is a 23-year-old single female with a history of depression, anxiety, chronic tic disorder who is seen in follow-up at the [facility] behavioral health PHP. I last saw the patient 1 week ago and at that time no medication changes were made as the patient had recent changes. However the patient had side effects on her Latuda after I saw her and on her own she decreased to 10 mg and feels her side effects have resolved. She states that she feels she got more depressed and she looked up online and Prozac can increase the levels of Latuda so she decided to go down to 10 mg. Patient currently feels less depressed and has a little more motivation. She is enjoying the IOP and feels she is learning valuable skills to help with her mental health issues. She denies any suicidal ideation, or thoughts of self-harm but she last had passive suicidal ideation about 3 days ago. She is getting about 8 hours of sleep overall or little more she sleeps about 5 hours but naps during the day also. She admits to passive thoughts of . The patient's fianc? continues to control her medications and she does not have access to them. The patient recently was admitted October 28 of November 01 after an Effexor overdose and had serotonin syndrome which has now resolved. 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 Current Psychiatric Medications: [] Latuda 10 mg p.o. daily for 2 days (decreased from 20 mg by patient on her own due to side effects); Prozac 20 mg p.o. daily (x 2 weeks); hydroxyzine 50 mg as needed for sleep/anxiety. Mental Status Examination: [] The patient is a 23-year-old female who is seen wearing glasses and appears normal for stated age and is casually dressed and groomed with good hygiene. She has no psychomotor agitation or retardation. Eye contact is fair to good and speech is normal rate and rhythm and fluent with no pressure. Mood is anxious and depressed. Affect is constric phillip. Thought process is goal-directed and organized. Thought content: There is evidence of passive thoughts of . There is no evidence of suicidal ideation, homicidal ideation, plan for suicide, hallucinations or delusions or thoughts of self-harm. Reality testing is intact. Judgment is intact. Insight is fair. Impulsivity is moderate. Diagnoses: [] 1. Major depressive disorder, recurrent, severe without psychosis 2. Generalized anxiety disorder 3. Alcohol use disorder 4. Chronic tic disorder 5. Work issues Plan: [] Patient will continue the IOP in behavioral health at [facility] as hopefully it will not prevent worsening of the patient's symptoms that could require rehospitalization. She felt safe during the interview and if it anytime she does not feel safe she agrees to let us know or go to the emergency room. The risk, options, possible complications and side effects of the medications were again discussed with the patient and she understands a ccepts these. The patient will continue on her reduced dose of Latuda as she feels it has helped her significantly. In addition we will stop the Prozac as she is only been on it for 2 weeks and start Lexapro 5 mg p.o. daily as Lexapro will not decrease the metabolism of the Latuda so eventually after the Prozac saw the system we may be able to increase the Latuda to 20 mg and on without any side effects. She will continue to follow-up with her outpatient providers and I will see the patient in follow-up in 2 weeks.
--- NOTE | 2023-11-16 09:02 | BH.SGPN.GN ---
Behaviors/Verbalizations/Mental Status: [] Eye contact good. Motor activity appropriate. Speech within normal limits. Affect congruent, mood agitated, dysthymic. Thoughts linear, logical, no signs of hallucinations or delusions. Reviewed client?s symptom tracker, denies SI, plan, or intent as of 11/16/2023. Client Response/Progress/Benefit: [] Client receptive of session, attentive and willing to process with group. Identified mental health ?wins? as challenging herself to use opposite action and get out of bed after napping yesterday. Shared beliefs her medication change has impacted depression levels which is a stressor. Discussed plans to give it more time and remind herself that it will take time for her body to adjust to the changes. Additional win noted as making plans to go out to lunch rather than fall into unhealthy coping such as isolation, which pt stated often doing when depressed. Client appeared to benefit from group support and encouragement. Recommended continued PHP tx to continue to improve mood stability, promote consistent skill application, work on adopting healthier core beliefs, and prevent decompensation. Narrative Note: []
--- NOTE | 2023-11-16 10:15 | BH.SGPN.GN ---
Behaviors/Verbalizations/Mental Status: []Pt alert and oriented, neatly dressed and groomed. Eye contact good. Motor activity appropriate. Speech within normal limits. Affect constricted, mood dysthymic. Thoughts linear, logical, no signs of hallucinations or delusions. Client Response/Progress/Benefit: []Pt an active participant throughout. Participated during interactive discussion on defining conflict (internal/external) and possible benefits to conflict. Attentive during psychoeducation on conflict styles and engaged during small group activity in which peers identified the benefits and consequences to each conflict style. Pt identified their primary conflict style as accommodating type. Pt shared this style negatively impacts pt?s mental health as pt feels overworked, burnout, and that her needs do not get met. Benefited from increased awareness of the impact of conflict styles in mental health. Will continue in PHP tx for one more day to reinforce healthy coping skills and monitor medications. Narrative Note: []
--- NOTE | 2023-11-16 11:10 | BH.SGPN.GN ---
Behaviors/Verbalizations/Mental Status: [] Eye contact is good. Motor activity is appropriate. Appearance is casual. Speech is Appropriate. Mood is anxious/irritable. Affect is congruent. Thoughts are linear and logical. No evidence of psychosis. Client Response/Progress/Benefit: [] Pt was an active participant in group discussions and activity. Attentive during psychoeducation on the benefits and drawback of each conflict style. Along with peers was able to reflect on what conflict resolution skills can be useful outside of IOP. Pt was able to identify several conflict resolution skills she could implement. Benefited from practicing and learning conflict resolution skills during group activity. Able to relate activity back to group topic. Will continue in PHP to maintain safety, prevent decompensation/re-admission, stabilize mood, and improve functioning to return to work. Narrative Note: []
--- NOTE | 2024-01-10 11:20 | BH.MDN_ITS ---
Multi-Disciplinary Note Note 45-min Individual: Time Started:: 10:15 Date: 01/10/24 Purpose of session/treatment goals addressed:: Purpose of session was to identify treatment progress, complete and maintenance plan, and solidify aftercare. Eye Contact:: Good Motor Activity:: Appropriate Appearance:: Casual Speech:: Appropriate Mood:: Euthymic Affect:: Full Thoughts:: Linear, Logical and No evidence of hallucinations/delusions noted Staff Interventions:: CBT techniques, discharge planning, strengths perspective and other (Completing maintenance plan) Client Response:: Client reported she is excited and nervous to discharge from [facility] today. Client stated in reflection she really does notice a significant improvement in how she was compared to when she first started the program. Client stated paragraphs to include no self-harm since starting [facility] and IOP, no active suicidal thoughts, and her relationship with barbara?, increased honesty with how she is feeling, improved sleep, decreased napping throughout the day, and improve socialization. Client also has been able to successfully reintegrate back into work last week and this week. Client stated she realizes work and that she be very healthy for her because it gives her structure and she is surrounded by healthy supports. Client worked with therapist to also identify possible triggers to mental health struggle, warning signs, and self-care activities. Client noted additionally she has decreased amount of alcohol she is consuming each week. Client stated she does feel more ready to discharge from the program and recognizes she has more tools to help her manage life stressors and can refer back to the IOP binder as a refresh of skills. Risks/Concerns:: Denies active suicidal ideation, plan, or intention. Future oriented. Progress Toward Goals/Plan:: Progress note with client reporting improved daily functioning, returning back to work, improved sleep, improved ability to manage emotions, and improve relationships. Client could benefit from working on her body image and decreasing use of alcohol as a coping skill. Plan is for client to discharge from the [facility] to day. Client has made an appointment for outpatient counselor at [facility] for the end of January. Client has an appointment for outpatient psychiatry with Dr. Caban next week. Time Stopped:: 11:00
--- NOTE | 2024-01-10 11:27 | BH.DS_ITS ---
Discharge Summary Demographics Date of Admission:: 11/20/23 Discharge Date: 01/10/24 Presenting Problems at Admission:: The patient is a 23-year-old single female with a history of depression, anxiety, chronic tic disorder who was referred to the [facility] behavioral health by [facility] due to a recent admit (October 28 to November 01, 2023) for depression and a suicide attempt. Patient states that for 6 months she has had these depressive symptoms that she feels were made worse by stresses at work and decreased sleep due to working three 12-hour shifts in a row. She has been on FMLA since her suicide attempt which she stated was triggered by having panic attacks in front of her coworkers at work 1 day. Prior to the overdose she was sleeping 15 to 20 hours/day due to her depression. She has not been suicidal since she got out of the hospital. Concentration has been decreased and she has occasional hopelessness, worthlessness endorses guilt. Discharge Diagnoses:: 1. Major depressive disorder, recurrent, severe without psychosis F33.2 2. Generalized anxiety disorder 3. Alcohol use disorder 4. Chronic tic disorder Reason for Discharge:: Client has reintegrated back into work successfully, reports improved daily functioning, and has made progress on treatment goals. Treatment Progress During Treatment & Response: Client stated progress to include no self- harm since starting PHP and IOP, no active suicidal thoughts, and her relationship with barbara?, increased honesty with how she is feeling, improved sleep, decreased napping throughout the day, and improve socialization. Per DSM 5 cross cutting scale her overall mental health symptoms decreased by 37%. Client's anxiety decreased by 50%. Depression scores remained the same at a moderate range. Client had stated not being on an anti-depressant for over a week has contributed to feeling more low at times. Client just got her new anti- depressant yesterday. Client consistently attended IOP. Client admitted there were moments off and on throughout the program that she didn't apply the skills consistently. Client has shown improved consistency the last two weeks. Issues Still to be Addressed:: Client could benefit from working on body image issues which lead to some restricting and counting calories. Additionally could benefit from improving distress tolerance, decreasing utilization of alcohol as a coping skill, and reinforcing positive thought patterns. Also could benefit from challenging distorted/negative thought patterns. Discharge Recommendations/Instructions:: Client is scheduled for an appointment at the end of January at [facility] for [facility]. Client has an appointment with Dr. Caban for outpatient psychiatry next week. Discharge Handout
== END 2023-11-16 23:59 ==
LOC: BHPHP 08:00
PROVIDERS: PCP Registered Nurse; Referring Provider Psychiatry & Neurology Psychiatry; Visit Provider Psychiatry & Neurology Psychiatry
DX: F33.2 Major depressive disorder, recurrent severe without psychotic features (principal); F41.1 Generalized anxiety disorder; F10.90 Alcohol use, unspecified, uncomplicated; F95.9 Tic disorder, unspecified
CPT/HCPCS: H0035; 90832; 90834; 90837; G0410

== ENCOUNTER 2023-11-17 06:59 | Outpatient (RCR) | payer OTHER, SELFPAY ==
[2023-11-17 00:41] VITALS: BP 146/86; PULSE 74
--- NOTE | 2023-11-17 09:05 | BH.SGPN.GN ---
Behaviors/Verbalizations/Mental Status: [Patient was alert and oriented, appropriately dressed and groomed. Eye contact was good, motor activity normal, speech within normal limits. Affect congruent, mood content. Thoughts linear, logical, no signs of hallucinations or delusions. Reviewed Patients symptom tracker and the patient reports depressed mood, anxiety/panic attacks, agitation/irritability/anger, self-harm urges, and thoughts/risk of suicide within normal limits.] Client Response/Progress/Benefit: [Patient was engaged and open to the discussion. Patient reported her mood to be ?content?. Patients first win is that she woke up in a good mood. Patient shared this week has been tough for her but thinks her new medication change is the source. Patients second win is that yesterday she went on a walk with a friend and had lunch. She shared that they went and looked at a bunch of [employer] shops and had a good time. Patients stress is that since she had been so down this week that she neglected her house that she had just cleaned. Patient said that after group today she will be going home and cleaning it up again with the help of her partner. Patient was interactive and respectful with other group members about their mental wins and stressors. Patient benefited from the discussion by listening to feedback and giving input on her peer?s stressors and mental health wins. Patient will continue with IOP treatment to help develop healthy skills, promote mood stability, and improve distress tolerance. ] Narrative Note: []
--- NOTE | 2023-11-17 10:15 | BH.SGPN.GN ---
Behaviors/Verbalizations/Mental Status: []Pt alert and oriented, casually dressed and groomed. Eye contact good. Motor activity appropriate. Speech within normal limits. Affect congruent, mood tired and depressed. Thoughts linear, logical, no signs of hallucinations or delusions. Client Response/Progress/Benefit: [] Pt connected with topic of anxiety and participated throughout, providing input and taking notes. Participated throughout interactive discussion defining anxiety and identifying cognitive and physiological symptoms of anxiety. Group discussed how anxiety can prevent them from trying new things. Pt identified physical signs of anxiety as sweating, getting red, and feeling dizzy. Pt identified cognitive signs as jumbling words and increased negative thinking. Benefited from increased awareness and insight on anxiety and its impact. Pt will discharge from [facility] level of care and begin IOP tx on 11/20/23. Narrative Note: []
== END 2023-11-17 11:25 | disposition home or self-care (01) ==
LOC: BHPHP 06:59
PROVIDERS: PCP Registered Nurse; Referring Provider Psychiatry & Neurology Psychiatry; Visit Provider Psychiatry & Neurology Psychiatry
DX: F33.2 Major depressive disorder, recurrent severe without psychotic features (principal); F41.1 Generalized anxiety disorder; F10.90 Alcohol use, unspecified, uncomplicated; F95.9 Tic disorder, unspecified
CPT/HCPCS: H0035; G0410

== ENCOUNTER 2023-11-20 08:00 | Outpatient (RCR) | payer OTHER, SELFPAY ==
--- NOTE | 2023-11-20 09:05 | BH.SGPN.GN ---
Behaviors/Verbalizations/Mental Status: [Patient was alert and oriented, appropriately dressed and groomed. Eye contact was good, motor activity normal, speech within normal limits. Affect congruent, mood apathetic. Thoughts linear, logical, no signs of hallucinations or delusions. Reviewed Patients symptom tracker and the patient reports depressed mood, anxiety/panic attacks, agitation/irritability/anger, self-harm urges, and thoughts/risk of suicide within normal limits.] Client Response/Progress/Benefit: [Patient was engaged and open to the discussion. Patient reported her mood to be ?neutral?. Patient stated her weekend started with a big stressor. 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 She said this made her ?really angry? and distracted herself by cleaning but ended up calling her mom crying. Patient stated she is ?mostly over it? now although it still ?sucks?. Patients first win is that she had a good weekend otherwise and cooked and kept the house tidy. Her second win was that she went and saw the new [place] in theaters and enjoyed it. Patient was interactive and respectful with other group members about their mental wins and stressors. Patient benefited from the discussion by listening to feedback and giving input on her peer?s stressors and mental health wins. Patient will continue with IOP treatment to help develop healthy skills, promote mood stability, and improve distress tolerance. ] Narrative Note: []
--- NOTE | 2023-11-20 10:15 | BH.SGPN.GN ---
Behaviors/Verbalizations/Mental Status: []Patient was alert and oriented, casually dressed and groomed. Eye contact was good, motor activity normal, speech within normal limits. Affect congruent, mood tired. Thoughts linear, logical, no signs of hallucinations or delusion Client Response/Progress/Benefit: []Pt participated in the group discussions AEB providing input and taking notes. Attentive during psychoeducation Goal Setting. Participated during the discussion on common barriers lack of motivation, making excuses, not feeling good enough, and lack of support. Group also identified benefits sense of purpose, improved self-confidence, more motivation for other goals, and improved mental health. Pt reports struggling specifically with barriers of fear of failure and lack of motivation. Benefited from increased awareness of mental health benefits of goals as well as psychoeducation on SMART goal criteria. Will continue in IOP to increase distress tolerance skills, improve daily functioning, and reduce negative thinking patterns. Narrative Note: []
--- NOTE | 2023-11-20 11:10 | BH.SGPN.GN ---
Behaviors/Verbalizations/Mental Status: []Pt alert and oriented, casually dressed and groomed. Eye contact good. Motor activity appropriate. Speech within normal limits. Affect congruent, mood depressed. Thoughts linear, logical, no signs of hallucinations or delusions. Client Response/Progress/Benefit: [] Pt was engaged during discussion and willing to complete the worksheet challenging them to develop a personal SMART goal. Pt chose the goal of reducing naps to under an hour each day for a week. Pt stated this will improve her overall sleep hygiene. Pt identified negative self-talk, low motivation, and sleeping next to her alarm as barriers. Identified solutions such as placing her phone across the room, visual ques, positive affirmations, and using opposite action. Pt receptive to identifying solutions for these barriers and willing to begin working on this goal. Benefited from this group by developing a short-term SMART goal related to mental health. Will continue IOP tx to prevent decompensation, improve daily functioning, and gain healthy coping skills. Narrative Note: []
--- NOTE | 2023-11-20 14:19 | BH.MDN_ITS ---
Multi-Disciplinary Note Note 45-min Individual: Time Started:: 12:05 Date: 11/20/23 Purpose of session/treatment goals addressed:: Purpose of session was to assess current symptoms, stressors, and goals for IOP. Eye Contact:: Good Motor Activity:: Appropriate Appearance:: Casual Speech:: Appropriate Mood:: Euthymic Affect:: Congruent Thoughts:: Linear, Logical and No evidence of hallucinations/delusions noted Staff Interventions:: thought challenging, CBT techniques, mindfulness ski lls, strengths perspective, treatment planning and goal setting Client Response:: Client shared she believes she made progress while in PHP with decreased depression, decreased isolating, improved recovery time from intense emotions, and improved utilization of behavior activation activities. Client stated while in IOP she would like to work on Time Stopped:: 12:45
--- NOTE | 2023-11-22 09:00 | BH.SGPN.GN ---
Behaviors/Verbalizations/Mental Status: [Patient was alert and oriented, appropriately dressed and groomed. Eye contact was good, motor activity normal, speech within normal limits. Affect congruent, mood apathetic. Thoughts linear, logical, no signs of hallucinations or delusions. Reviewed Patients symptom tracker and the patient reports depressed mood, anxiety/panic attacks, agitation/irritability/anger, self-harm urges, and thoughts/risk of suicide within normal limits.] Client Response/Progress/Benefit: [Patient was engaged and open to the discussion. Patient reported her mood to be ?aquiles?. Patients first win is that she slept good last night. Patients second win is that she hung out with one of her friends all day yesterday. She said she hasn?t been able to do that for a few years and it felt nice. Patients stressor is that she has a bunch of laundry at home that she doesn?t want to do. She said her fianc? will be home to help keep her accountable. Patient was interactive and respectful with other group members about their mental wins and stressors. Patient benefited from the discussion by listening to feedback and giving input on her peer?s stressors and mental health wins. Patient will continue with IOP treatment to help develop healthy skills, promote mood stability, and improve distress tolerance. ] Narrative Note: []
--- NOTE | 2023-11-22 10:15 | BH.SGPN.GN ---
Behaviors/Verbalizations/Mental Status: [] Eye contact is poor. Motor activity is appropriate. Appearance is casual. Speech is Appropriate. Mood is depressed. Affect is flat. Thoughts are linear and logical. No evidence of psychosis. Client Response/Progress/Benefit: [] Pt did not participate during group discussions, however did participate in group activities. This portion of group was very psychoeducation heavy and pt was attentive during psychoeducation. Engaged during activity in which they identified which type of foods (i.e. carbs, sugar, salt, fast food, caffeine, etc) they seek out when sad, tired, angry, rushed, anxious, etc. Pt was able to identify the impact that certain foods have on their mental health through group example which was beneficial. Benefited from increased awareness of the connection between nutrition and mental health. Will continue in IOP to prevent decompensation/ re-admission to psychiatric unit, stabilize mood, improve functioning to return to work, and increase healthy coping skills. Narrative Note: []
--- NOTE | 2023-11-22 11:15 | BH.SGPN.GN ---
Behaviors/Verbalizations/Mental Status: [] Client Response/Progress/Benefit: [] Narrative Note: []
--- NOTE | 2023-11-22 11:59 | PCM.BH.PN ---
Progress Note Progress Note: History of Present Illness/Interim History: The patient is a 23-year-old single female with a history of depression, anxiety, chronic tic disorder who is seen in follow-up at the [facility] behavioral health [facility]. The patient stepdown to IOP this week as her condition has stabilized. I last saw the patient 1 week ago and at that time Prozac was discontinued and Lexapro was started at 5 mg daily as the Prozac was increasing the levels of Latuda and causing side effects at low doses. The patient is doing well she feels and has much less agitation than before. She is much less irritable. She is tolerating the Lexapro well with no side effects. She feels she is learning valuable skills in the IOP. She had passive thoughts of only once or twice last week as she feels she is becoming less depressed. She denies any suicidal ideation, plan for suicide, homicidal ideation, hallucinations or delusions. Sleep remains at about 8 hours of sleep overall. The patient's fianc? continues to control her medications and she does not have access to them. This was done because the patient was admitted in October 2023 after an Effexor overdose and had serotonin syndrome which has now resolved. 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 The patient had about 5 alcoholic drinks total last week and describes her drinking as minimal. Current Psychiatric Medications: [] Latuda 10 mg p.o. daily (decreased from 20 mg due to side effects); Lexapro 5 mg p.o. daily (x 1 week); Prozac discontinued 1 week ago; hydroxyzine 50 mg as needed for sleep and anxiety. Mental Status Examination: [] The patient is a 23-year-old female who is seen wearing glasses and appears normal for stated age and is casually dressed and groomed with good hygiene. She is cooperative during the interview and has no psychomotor agitation or retardation. Eye contact is good and speech is normal rate and rhythm and fluent with no pressure. Mood is anxious and depressed. Affect is constricted. Thought process is goal-directed and organized. Thought content: There is no evidence of passive thoughts of , suicidal ideation, plan for suicide, hallucinations, delusions or homicidal and ideation. Reality testing is intact. Judgment is intact. Insight is fair. Impulsivity is moderate. Diagnoses: [] 1. Major depressive disorder, recurrent, severe without psychosis 2. Generalized anxiety disorder 3. Alcohol use disorder 4. Chronic tic disorder 5. Work issues Plan: [] The patient will stepdown to [facility] at [facility] as her situation has somewhat stabilized and no longer requires PHP. She felt safe during the interview and if it anytime she does not feel safe she agrees to let us know or go to the emergency room. No medication changes were made today and we will consider increasing the Latuda in about 5 weeks after the Prozac is out of her system. I will see the patient in 2 weeks and at that time we may consider increasing her Lexapro dose. She will continue to follow-up with her outpatient providers and she will continue to eliminate alcohol use.
--- NOTE | 2023-11-22 12:04 | BH.DR.ITP ---
Initial Treatment Plan Patient Information Visit Information: ADMISSION DATE: EXPECTED LOS: 4-6 weeks Problems/Symptoms Problem #1:: Depression Symptom:: Sadness, hopelessness, recent passive thoughts of , recent suicidal ideation, low motivation, decreased concentration Problem #2:: Anxiety Symptom:: Worry, rumination, panic attacks
--- NOTE | 2023-11-23 09:00 | BH.SGPN.GN ---
Behaviors/Verbalizations/Mental Status: [] Eye contact is poor.. Motor activity is appropriate. Appearance is casual. Speech is Appropriate. Mood is depressed. Affect is flat. Thoughts are linear and logical. No evidence of psychosis. Reviewed daily check in sheet and pt reports 1/5 for suicidal ideations and 0/5 for intent. Client Response/Progress/Benefit: [] Pt participated when prompted. Attentive. Daily symptom tracker notes 4/5 for depression. Pt reports increased depression recently. States that she is sleeping more than usual and has limited motivation/energy. She took several naps over the past couple days. I'm just down today. She attributes this to her medications, however has insight that she is also not attempting to utilize internal/external skills. I'm getting in the way of myself. Unable to identify triggers to depression and struggles. Identified mental health wins as completing tasks despite her significant depression and limited motivation/energy. Limited progress noted. Beneifted from group support, encouragment, and feedback. Will continue in IOP to maintain safety, prevent decompensation, increase healthy coping skills, and improve functioning to return to work. Narrative Note: []
--- NOTE | 2023-11-23 10:15 | BH.SGPN.GN ---
Behaviors/Verbalizations/Mental Status: []Client alert and oriented, casually dressed and groomed. Eye contact good. Motor activity appropriate. Speech within normal limits. Affect congruent, mood depressed. Thoughts linear, logical, no signs of hallucinations or delusions. Client Response/Progress/Benefit: []Pt engaged in session AEB listening attentively to others and providing input throughout group discussion. Pt engaged in activity, able to connect how it can be uncomfortable and difficult to accept when things are out of one?s own control. Pt worked with group to identify what things in life can be hard to accept. Group identified things hard to accept as: disability, caregiving responsibilities, loss of relationship, mental health diagnosis, other?s behaviors, and past decisions. Pt identified struggling to accept her role in maintaining her depression. Seemed to benefit from increased awareness of importance of acceptance. Pt to continue IOP tx to further improve mood stability, continue to promote application of behavior activation skills, and prevent decompensation. Narrative Note: []
--- NOTE | 2023-11-23 11:10 | BH.SGPN.GN ---
Behaviors/Verbalizations/Mental Status: []Pt alert and oriented, neatly dressed and groomed. Eye contact good. Motor activity appropriate. Speech within normal limits. Affect congruent, mood depressed. Thoughts linear, logical, no signs of hallucinations or delusions. Client Response/Progress/Benefit: []Pt responded well to session AEB taking notes and contributing to discussion throughout. Pt engaged as group continued discussion on acceptance and the mental health benefits of practicing acceptance. Pt and peers identified what makes acceptance challenging and pt completed a self-reflection exercise on what is hard to accept in pt's life. Pt identified struggling to accept ?help and that I?m struggling.? Group identified strategies to increase acceptance and pt shared wanting to focus on recognizing when she is being willful and trying to change that. Pt appeared to benefit from gaining insight and learning strategies to increase acceptance. Pt will continue IOP tx to promote mood stability, reduce negative thinking patterns, and reduce avoidance. Narrative Note: []
--- NOTE | 2023-11-27 09:00 | BH.SGPN.GN ---
Behaviors/Verbalizations/Mental Status: [] Eye contact is good. Motor activity is appropriate. Appearance is casual. Speech is Appropriate. Mood is euthymic. Affect is full. Thoughts are linear and logical. No evidence of psychosis. Reviewed daily check in sheet and no reports of suicidal ideations or intent. Client Response/Progress/Benefit: [] Pt participated when prompted. Attentive at times. Daily symptom tracker notes 3/5 for depression and 2/5 for anxiety. Emotion is nervous anxiety. Able to identify mental health wins and healthy habits over the weekend. Spent time with support and she elaborated on how this was beneficial to her mental health. States her mood has improved since last week. More engaged in activities. She often attributes any progress or regression to medications. If she is doing well its b/c of the meds. If she is struggling she needs to change her medications. Views her mood as being soley controlled by her medications which oftentimes limits her desire or motivation to attempt internal coping/CBT skills. Narrative Note: []
--- NOTE | 2023-11-27 10:10 | BH.SGPN.GN ---
Behaviors/Verbalizations/Mental Status: [Patient was alert and oriented, casually dressed and groomed. Eye contact was good, motor activity normal, speech within normal limits. Affect congruent, mood depressed. Thoughts linear, logical, no signs of hallucinations or delusions. ] Client Response/Progress/Benefit: [ Patient was engaged and open to the discussion and appeared to respond well to the group. Patient used active listening and gave feedback during group discussion. Patient identifies that setting boundaries gives you emotional safety. Patient was engaged in the activity of identifying the reasons that setting boundaries is hard. Patient stated its hard for her to set boundaries because she doesn?t want anyone to be mad at her. Patient appeared to benefit from increasing awareness of healthy strategies to improve communication. Patient will continue IOP treatment to improve daily functioning, emotion management, and prevent decompensation] Narrative Note: []
--- NOTE | 2023-11-27 11:15 | BH.SGPN.GN ---
Behaviors/Verbalizations/Mental Status: []Pt alert and oriented, neatly dressed and groomed. Eye contact good. Motor activity appropriate. Speech within normal limits. Affect flat, mood euthymic. Thoughts linear, logical, no signs of hallucinations or delusions. Client Response/Progress/Benefit: []Pt responded well to session AEB listening attentively to peers and providing input throughout. Pt attentive during psychoeducation on the different boundary styles. Pt identified being flexible, but pt also struggles with being emotionally rigid with her boundaries. Pt was given a handout on strategies for healthy boundary setting. Identified wanting to work on being more assertive with her boundaries and avoiding vague responses. Seemed to benefit from increased awareness of boundary styles and strategies to improve setting boundaries. Will continue IOP tx to prevent decompensation, improve distress tolerance skills, and reduce negative thinking patterns. ?? Narrative Note: []
--- NOTE | 2023-11-30 09:00 | BH.SGPN.GN ---
Behaviors/Verbalizations/Mental Status: [] Eye contact is good. Motor activity is appropriate. Appearance is casual. Speech is Appropriate. Mood is depressed. Affect is flat. Thoughts are linear and logical. No evidence of psychosis. Reviewed daily check in sheet and no reports of suicidal ideations or intent. Client Response/Progress/Benefit: [] Pt participated when prompted. Attentive. Daily symptom tracker notes 2/5 for depression and /5 for anxiety/agitation. Struggles to identify wins and healthy habits, however reports improved mood and ? feeling happier?. Her mood appears to be situational and she struggles to attempt to use any skills. Remains focused on her medications as primary ?skill? to cope with stressors, thoughts, and actions which may be reason she has not seen any consistent stability. Limited progress. Benefited from group support, encouragement, and feedback. Will continue in [facility] to maintain safety, prevent decompensation/ re-admission, and to improve functioning to return to work. Narrative Note: []
--- NOTE | 2023-11-30 10:10 | BH.SGPN.GN ---
Behaviors/Verbalizations/Mental Status: []Pt alert and oriented, appropriate grooming/appearance. Eye contact good. Motor activity appropriate. Speech within normal limits. Affect constricted, mood dysthymic. Thoughts linear, logical, no signs of hallucinations or delusions. Client Response/Progress/Benefit: []Pt was an active participant in group discussions. Attentive during psychoeducation. Contributed during interactive discussions in which peers attempted to define crisis. Pt identified examples of potential crisis. Group also worked together to identify unhealthy responses to crisis which included; isolation, self-harm, substance abuse, avoidance, and distraction. Pt identified personal warning signs as crying more often, isolating/avoidance, and urges to self-harm. Benefited from increased understanding of crisis and awareness of personal responses to crisis. Pt will continue IOP tx to improve distress tolerance, challenge negative thoughts, and prevent decompensation.
--- NOTE | 2023-11-30 11:10 | BH.SGPN.GN ---
Behaviors/Verbalizations/Mental Status: []Eye contact is good. Motor activity is appropriate. Appearance is casual. Speech is Appropriate. Mood is dysthymic. Affect is flat. Thoughts are linear and logical. No evidence of psychosis. Client Response/Progress/Benefit: []Pt was an active participant in group discussions. Attentive during psychoeducation. In small group pt along with peers developed an active plan for their crisis warning signs. Pt identified three crisis warning signs as well as an action plan for each. One crisis warning sign was isolating and avoiding. Pt identified coping skills to help with this such as: opposite action, DDD, listening to her partner?s encouragement, and challenging labeling thoughts. Benefited from increased awareness of crisis warning signs and by developing crisis intervention strategies. Will continue in IOP to prevent decompensation, improve daily functioning, and reduce use of unhealthy coping skills. ?? Narrative Note: []
--- NOTE | 2023-11-30 14:49 | BH.MDN ---
Multi-Disciplinary Note Note 45-min Individual: Time Started:: 12:05 Date: 11/30/23 Purpose of session/treatment goals addressed:: Purpose of session was to address goals 1 and 2 from MTP. Eye Contact:: Good Motor Activity:: Appropriate Appearance:: Casual Speech:: Appropriate Mood:: Euthymic Affect:: Congruent Thoughts:: Linear, Logical and No evidence of hallucinations/delusions noted Staff Interventions:: thought challenging, CBT techniques, mindfulness skills, strengths perspective, goal setting and taught coping skills Client Response:: Client reported overall this week has been going positive for her with improved mood and decreased anxiety. Client reported she has been getting improved sleep which is significantly helped her energy level. Client stated she has not been taking naps daily and when she has napped she has decreased it by 50% in a month. Client stated she feels like she is doing better with utilizing opposite action and behavior activation by getting tasks done around the house and started to engage in activities that she used to enjoy like playing video games and walking. Client reported she is identifying daily wins but notes that challenging to give herself credit and she sometimes has a hard time realizing how far she has come with progress. Client reported she has been struggling this week with increased negative body image thoughts due to her appetite being increased. Client stated she has noticed her weight has started to steadily increase which she thinks is related to increased appetite which she believes is from medication change. Client reported she has noticed herself feeling more guilty after eating food and is already obsessing about how she is going away tomorrow. Client stated her body image had been improving the last few weeks but is triggered with feeling like she cannot stop eating. Client stated she notices herself touching her stomach a lot and noting on any changes that she feels. Client receptive to being more mindful about how she talks herself about exercise and eating. Client had made the comment that she has to walk today because she is going to eat tacos from a food truck. Client provided psychoeducation about the importance of framing going for a walk as being healthy for her body and brain versus as a punishment. Client also encouraged to try to use tactile sensory when she notices herself starting to go to feel her stomach. Client stated she is open to going to a outpatient therapist when she discharges from [facility] that can help her with her body image. Client stated she is significantly better with body image compared to when she was in high school but recognizes she does not want to continue this way of thinking and does not want to return back to like restriction and disordered eating behaviors. Risks/Concerns:: Denies suicide ideation, intention, and and plan. Future oriented. Progress Toward Goals/Plan:: Progress noted with client reporting improved mood, decreased anxiety, and improved follow through on healthy coping skills and strategies. Client starting to be more productive around the house, decreasing naps, and improving sleep, and Time Stopped:: 12:45
--- NOTE | 2023-12-01 09:03 | BH.SGPN.GN ---
Behaviors/Verbalizations/Mental Status: Patient was alert and oriented, appropriately dressed and groomed. Eye contact was fair, motor activity normal, speech within normal limits. Affect flat. Mood dysthymic. Thoughts linear, logical, no signs of hallucinations or delusions. Reviewed Patients symptom tracker and denies suicidal ideation, plan, or intention. Client Response/Progress/Benefit: Patient was engaged and open to the discussion. Pt stated she is going to a comedy show tonight, but is having a hard time feeling excited about this. Pt reported she is in her thoughts a lot lately and having trouble using her skills. Pt struggled with identifying any other wins and wasn't receptive to attempting to challenge negative thoughts. Patient benefited from the discussion by listening to feedback and giving input on her peer?s stressors and mental health wins. Patient will continue with IOP treatment to increase consistent healthy coping skills, challenge negative thoughts, and prevent decompensation.
--- NOTE | 2023-12-01 10:05 | BH.SGPN.GN ---
Behaviors/Verbalizations/Mental Status: [] Eye contact is poor. Motor activity is appropriate. Appearance is casual. Speech is Appropriate. Mood is depressed/irritable. Affect is flat. Thoughts are linear and logical. No evidence of psychosis. Client Response/Progress/Benefit: [] Pt did not participate in activity. Limited attention and no engagement. Attentive at times during psychoeducation and interactive discussion on coping skills, why people use unhealthy coping skills, how to replace unhealthy coping skills, and internal vs external coping skills. Attentive as peers came up with list of negative coping skills including not asking for help, avoidance, isolating, sleeping, shopping, substance use, and several others. Group discussed the effects of how negative coping skills can impact mental health in a negative way. . Benefited from increased understanding of unhealthy coping skills and the need for developing healthy internal and external coping skills. Will continue in IOP to prevent decompensation/readmission, maintain safety, increase health coping skills, and improve functioning to return to work. Narrative Note: []
--- NOTE | 2023-12-05 09:00 | BH.SGPN.GN ---
Behaviors/Verbalizations/Mental Status: [] Eye contact is poor. Motor activity is appropriate. Appearance is casual. Speech is Appropriate. Mood is depressed. Affect is flat. Thoughts are linear and logical. No evidence of psychosis. Reviewed daily check in sheet and no reports of suicidal ideations or intent. Client Response/Progress/Benefit: [] Pt participated when prompted. Distracted and not engaged in group discussions. Daily symptom tracker notes 5 for depression and /5 for anxiety. Emotion for today is neutral. Reports mood and abiity to function are better than last IOP visit. States I pulled my mood together over the weekend however limited insight on skills used to improve her mood. As she talked it seemed that she was utilizing opposite-action stating I cooked dinner all weekend. She reports stressor is that her fiance is going to be working three 12 hour shifts in the next three days which will leave her alone often. I'm probably just going to sleep. Group provided feedback, suggestion, and challenged desire to sleep when alone. Group provided several alternative options however pt was dismissive maybe I can work on my fish tanks. Insight into potentail trigger to worsening depression however limited desire or motivation to attempt internal/external skills to mediate negative thoughts and distress. Limited progress or benefit from group. Will continue in IOP to maintain safety, prevent decompensation, and to improve function to return to work. Narrative Note: []
--- NOTE | 2023-12-05 10:15 | BH.SGPN.GN ---
Behaviors/Verbalizations/Mental Status: []Pt alert and oriented, causally dressed and groomed. Eye contact fair. Motor activity appropriate. Speech within normal limits. Affect constricted, mood depressed and irritable. Thoughts linear, logical, no signs of hallucinations or delusions. Client Response/Progress/Benefit: [] Pt was actively engaged, providing input at times, and taking notes throughout session. Connected with the topic of pitfalls and listened to group discussion on internal and external barriers that prevent from choosing a healthier path to mental wellness. Group worked together to identify examples of personal internal pitfalls and pt identified theirs as negative thinking patterns, isolation, and sleeping. Pt benefited from group as pt learned to better identify and normalize potential barriers to improving mental health symptoms. Pt also gained awareness of the difference between external triggers and self-sabotaging behaviors. Pt will continue IOP tx to prevent decompensation, improve daily functioning, and reduce use of unhealthy coping skills. Narrative Note: []
--- NOTE | 2023-12-05 11:15 | BH.SGPN.GN ---
Behaviors/Verbalizations/Mental Status: []Pt alert and oriented, casually dressed and groomed. Eye contact good. Motor activity appropriate. Speech within normal limits. Affect congruent, mood depressed. Thoughts linear, logical, no signs of hallucinations or delusions. Client Response/Progress/Benefit: [] Pt receptive of session, engaged throughout AEB actively contributing and listening to discussion, as well as taking notes. Pt participated in the experiential activity and processed with group how their emotions, perspective, and reactions positively and negatively impacted the outcome. Pt identified pitfalls they struggle with and shared wanting to work on pitfall of low motivation by reminding herself to use opposite action and behavior activation skills. Benefited from identifying personal pitfalls and strategies to overcome these pitfalls. Will continue IOP tx to prevent decompensation, improve daily functioning, and increase application of behavior activation skills. ? Narrative Note: []
--- NOTE | 2023-12-06 09:05 | BH.SGPN.GN ---
Behaviors/Verbalizations/Mental Status: [ Patient was alert and oriented, appropriately dressed and groomed. Eye contact was good, motor activity normal, speech within normal limits. Affect congruent, mood sad. Thoughts linear, logical, no signs of hallucinations or delusions. Reviewed Patients symptom tracker and the patient reports depressed mood higher than normal limit, anxiety/panic attacks, agitation/irritability/anger, self-harm urges, and thoughts/risk of suicide within normal limits. Patient will be checked in on to assess safety.] Client Response/Progress/Benefit: [Patient was engaged and open to the discussion. Patient reported her mood to be ?down?. Patients stressor is that she has been ?very down? the past few days. She reported that her win is that despite this, she did not self-harm yesterday. Patient was unable to identify a second win. Patient was interactive and respectful with other group members about their mental wins and stressors. Patient benefited from the discussion by listening to feedback and giving input on her peer?s stressors and mental health wins. Patient will continue with IOP treatment to help develop healthy skills, promote mood stability, and improve distress tolerance. ] Narrative Note: []
--- NOTE | 2023-12-06 10:10 | BH.SGPN.GN ---
Behaviors/Verbalizations/Mental Status: []Pt alert and oriented, casually dressed and groomed. Eye contact good. Motor activity appropriate. Speech within normal limits. Affect congruent, mood depressed. Thoughts linear, logical, no signs of hallucinations or delusions. Client Response/Progress/Benefit: [] Pt active participant AEB pt providing input throughout group discussion. Pt attentive during psychoeducation about defense mechanisms. Showed engagement during small group discussions and helped group identify which defense mechanisms were maladaptive, adaptive, or ?somewhere in the scott.? Pt started to work with group on identifying how each defense mechanism can impact mental health and gave examples. Pt was quiet but more engaged during small group discussion, identified struggling with rationalization and denial. ?Seemed to benefit from gaining awareness about the different defense mechanisms. Pt to continue IOP tx to prevent decompensation, improve daily functioning, and increase mood stability. ? Narrative Note: []
--- NOTE | 2023-12-06 11:10 | BH.SGPN.GN ---
Behaviors/Verbalizations/Mental Status: []Pt alert and oriented, casually dressed and groomed. Eye contact good. Motor activity appropriate. Speech within normal limits. Affect flat, mood depressed. Thoughts linear, logical, no signs of hallucinations or delusions. Client Response/Progress/Benefit: [] Pt responded well to session, participating in activity and small group discussion. Group reviewed the rest of the defense mechanisms and discussed how these are adaptive, maladaptive, or somewhere in the [place]ott. Pt participated in the experiential activity which encouraged pts to draw a castle that portrayed their different defense mechanisms. Pt's defense mechanisms included humor, rationalization, suppression, self-discipline, and denial. Pt gained awareness that she uses a lot of maladaptive defense mechanisms and these reinforce her depression and negative self-talk. Pt listened to sales development executive teach different skills to help pt?s cope with or change their defense mechanisms. Pt appeared to benefit from gaining insight to the different defense mechanisms and learning coping skills. Pt will discharge from IOP tx to prevent decompensation, improve daily functioning, and reduce use of unhealthy coping skills. Narrative Note: []
--- NOTE | 2023-12-06 12:15 | PCM.BH.PN_ITS ---
Progress Note Progress Note: History of Present Illness/Interim History: The patient is a 23-year-old single female with a history of depression, anxiety, chronic tic disorder who is seen in follow-up at the [facility] behavioral health [facility]. The patient was last seen 2 weeks ago and at that time no medication changes were were made. She has been compliant with her medications and is tolerating them well with no side effects. She feels she is learning valuable skills in the IOP but has some trouble applying the material. She remains depressed and endorses also hopelessness, worthlessness and some anhedonia. She had passive thoughts of only once or twice last week and states that her mood is pr obably less depressed than before. She denies suicidal ideation, plan for suicide, homicidal ideation, hallucinations, delusions or panic attacks. Sleep is good at 8 to 9 hours a night and he has improved. The patient's fianc? continues to control her medications and she does not have access to them. This is being done because the patient was admitted in October 2023 after an Effexor overdose and had serotonin syndrome which has now resolved. 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 The patient states she drank about 8 alcoholic drinks total last week and describes her drinking as minimal and she does not feel she needs to decrease any further. Current Psychiatric Medications: [] Latuda 10 mg p.o. daily (had side effects at 20 mg); Lexapro 5 mg p.o. daily (x 1 month); hydroxyzine 50 mg p.o. at nightly and as needed for panic attacks. Mental Status Examination: [] Patient is a 23-year-old female who is seen wearing glasses and appears normal for stated age and is casually dressed and groomed with good hygiene. She is cooperative during the interview and has no psychomotor agitation or retardation. Eye contact is good and speech is normal rate and rhythm and fluent with no pressure. Mood is depressed. Affect is constricted. Thought process is goal-directed and organized. Thought content: There is no evidence of passive thoughts of , suicidal ideation, plan for suicide, homicidal ideation, hallucinations or delusions. Reality test ing is intact. Judgment is intact. Insight is fair to good. Impulsivity is moderate. Diagnoses: [] 1. Major depressive disorder, recurrent, severe without psychosis 2. Generalized anxiety disorder 3. Alcohol use disorder 4. Chronic tic disorder 5. Work and primary support issues Plan: [] Patient will continue the IOP in behavioral health at [facility] as the structure, support, education and group therapy will hopefully prevent worsening of the patient's symptoms which could require hospitalization. She felt safe during the interview and if it anytime she does not feel safe she will let us know or go to the emergency room. Patient agrees to keep her alcohol use minimal with 0 alcohol use being the desired goal. The patient wishes and agrees to increase her Latuda to 20 mg p.o. daily with food in the evening. Refill was sent in for the Lexapro and prescription was sent in for the increased Latuda dose. She will continue to follow-up with her outpatient providers and I will see the patient in follow-up in 2 weeks.
--- NOTE | 2023-12-07 09:01 | BH.SGPN.GN ---
Behaviors/Verbalizations/Mental Status: [] Client alert and oriented, casual appearance. Eye contact good. Motor activity appropriate. Speech within normal limits. Affect constricted, mood euthymic. Thoughts linear, logical, no signs of hallucinations or delusions. Reviewed client?s symptom tracker, no risk for suicidal ideation, plan, or intent. Client Response/Progress/Benefit: [] Client responded well to session AEB listening to others and sharing thoughts/feelings. Client stated feeling hopeful this morning. Client reported yesterday her meds were increased and she is hoping this will have a positive impact on her mood. Client stated additional mental plan is waking up feeling better compared to last few days. With assistance from therapist client able to recognize she also spent time engaging with a hobby that she recently started to play. Client identified current stressor is having bad allergies the last few days. Appeared to benefit from support from peers. Will continue IOP tx to increase consistent utilization of healthy coping skills, challenge distorted and negative thought patterns, and prevent decompensation. Narrative Note: []
--- NOTE | 2023-12-07 10:10 | BH.SGPN.GN ---
Behaviors/Verbalizations/Mental Status: []Pt alert and oriented, neatly dressed and groomed. Eye contact good. Motor activity appropriate. Speech within normal limits. Affect congruent, mood depressed. Thoughts linear, logical, no signs of hallucinations or delusions. Client Response/Progress/Benefit: [] Pt took notes and contributed occasionally. Attentive during psychoeducation on growth mindset. Participated during the activity. Interactive group discussion on growth mindset in which group verbalized their current fixed mindsets and how they affect their mental health. Pt shared common fixed mindset thoughts they have which included I'm never getting better; I?m not good enough; this is too hard?. These thoughts lead to feeling and staying stuck, not letting supports help, and getting defensive with feedback. Pt stated they have personally struggled with fixed thoughts causing them to stop trying. Pt benefited from increased awareness of growth mindset and fixed thoughts and how fixed thoughts impact their mental health. Will continue IOP tx to prevent decompensation, improve daily functioning, and increase distress tolerance. Narrative Note: []
--- NOTE | 2023-12-07 11:10 | BH.SGPN.GN ---
Behaviors/Verbalizations/Mental Status: []Pt alert and oriented, casually dressed and groomed. Eye contact good. Motor activity appropriate. Speech within normal limits. Affect congruent, mood depressed. Thoughts linear, logical, no signs of hallucinations or delusions. Client Response/Progress/Benefit: [] Pt was an active participant during activity and discussion AEB providing some input when prompted, connecting with peers, as well as taking notes throughout. Pt did well to remain attentive and participate as group worked on identifying characteristics and benefits of adopting a growth mindset. Worked with fellow participants in reframing the example fixed thoughts into growth mindset thoughts. Pt worked on changing own fixed thought of I don't have the ability to be happy to a more growth mindset thought of I have the ability to be happy through hard work, challenging my mindset, and opening myself to vulnerability. Receptive of discussing benefits of growth mindset and brainstorming strategies for prompting growth-mindset. Pt appeared to benefit from working in small groups to challenge own thoughts and help peers. Pt will continue IOP tx to improve mood stability, promote behavior activation, and improve daily functioning. Narrative Note: []
--- NOTE | 2023-12-13 09:00 | BH.SGPN.GN ---
Behaviors/Verbalizations/Mental Status: [Patient was alert and oriented, appropriately dressed and groomed. Eye contact was good, motor activity normal, speech within normal limits. Affect congruent, mood apathetic. Thoughts linear, logical, no signs of hallucinations or delusions. Reviewed Patients symptom tracker and the patient reports depressed mood, anxiety/panic attacks, agitation/irritability/anger, self-harm urges, and thoughts/risk of suicide within normal limits.] Client Response/Progress/Benefit: [Patient was engaged and open to the discussion. Patient reported her mood to be ?mixed?. Patients first win is that tomorrow she is getting a tattoo which is a type of self-care she does. Patients second win is that she has been coping by talking about her feelings and playing video games. Patient stressor is that she keeps reminiscing on her ?MyChart? notes from when she overdosed. Patient was interactive and respectful with other group members about their mental wins and stressors. Patient benefited from the discussion by listening to feedback and giving input on her peer?s stressors and mental health wins. Patient will continue with IOP treatment to help develop healthy skills, promote mood stability, and improve distress tolerance. ] Narrative Note: []
--- NOTE | 2023-12-13 10:10 | BH.SGPN.GN ---
Behaviors/Verbalizations/Mental Status: [] Eye contact is good. Motor activity is appropriate. Appearance is casual. Speech is Appropriate. Mood is depressed. Affect is congruent. Thoughts are linear and logical. No evidence of psychosis. Client Response/Progress/Benefit: [] Pt participated at times and was engaged during experiential activity. Able to relate activity to group topic of FOF, interacting with fellow participants throughout. Engaged during interactive discussion on what failure means to the group in which peers identified and defined failure. Group was able to identify impact of fear of failure on mental health identifying that it can cause isolation, procrastination, self-sabotage, and negative self-talk?. Discussed that fear of failure has caused her to engage in self-sabotage and negative self-talk. Attentive during interactive discussion on the role that FOF plays in mental wellness, depression, anxiety, and growth. Benefited from increased awareness of how the role that FOF plays in mental health and decision-making. Will continue in IOP to prevent decompensation, increase healthy coping, reduce self-deprecating language, and to stabilize mood. Narrative Note: []
--- NOTE | 2023-12-13 11:15 | BH.SGPN.GN ---
Behaviors/Verbalizations/Mental Status: []Pt alert and oriented, casually dressed and groomed. Eye contact fair. Motor activity appropriate. Speech within normal limits. Affect flat, mood depressed. Thoughts linear, logical, no signs of hallucinations or delusions. Client Response/Progress/Benefit: [] Pt responded well to session, engaged in the experiential activity and attentive throughout group processing. Pt reported fear of failure has kept pt from getting mental health help, loving herself, and stopping drinking and smoking. Pt completed fear of failure worksheet and was able to identify thoughts and behaviors that reinforce personal fear of failure including only paying attention to negative things, avoiding being complacent, and self-sabotaging. Pt participated in group discussion regarding strategies to overcome fear of failure. Identified wanting to work on using opposite action and giving herself credit. Appeared to benefit from increased knowledge of strategies to combat fear of failure and gaining self-awareness. Pt will continue IOP tx to reduce use of unhealthy coping skills, increase motivation, and combat distorted thought patterns. ? Narrative Note: []
--- NOTE | 2023-12-14 09:00 | BH.SGPN.GN ---
Behaviors/Verbalizations/Mental Status: [] Pt alert and oriented, neatly dressed and groomed. Eye contact good. Motor activity appropriate. Speech within normal limits. Affect constricted, mood euthymic. Thoughts linear, logical, no signs of hallucinations or delusions. Reviewed pt?s symptom tracker, no risk for suicidal ideation, plan, or intent 12/14/23 Client Response/Progress/Benefit: []Pt responded well to session, attentive and engaged. Pt reports feeling proud this morning as pt did not nap yesterday which pt has been doing every day. Pt also accomplished some chores like laundry and she plans to get a tattoo today. Pt shared she also had a good conversation with her fiance instead of bottling up her thoughts and emotions. Pt's stressor is that she is tired today. Group talked about breaking the nap trap and how this will eventually help pt gain energy and motivation. Pt appeared to benefit from group feedback and support. Pt will continue IOP tx to prevent decompensation, improve daily functioning, and increase application of healthy coping skills. Narrative Note: []
--- NOTE | 2023-12-15 09:00 | BH.SGPN.GN ---
Behaviors/Verbalizations/Mental Status: [Patient was alert and oriented, appropriately dressed and groomed. Eye contact was good, motor activity normal, speech within normal limits. Affect congruent, mood content. Thoughts linear, logical, no signs of hallucinations or delusions. Reviewed Patients symptom tracker and the patient reports depressed mood, anxiety/panic attacks, agitation/irritability/anger, self-harm urges, and thoughts/risk of suicide within normal limits.] Client Response/Progress/Benefit: [Patient was engaged and open to the discussion. Patient reported her mood to be ?Hopeful?. Patients first win was she had a good day yesterday. Patient did some self-care by getting a tattoo and eating at [employer]. Patients second win is that she has slept well the past 2 nights. Patients stressor is that she has to go back to work in two weeks and is afraid she will ?lose control again?. Patient was interactive and respectful with other group members about their mental wins and stressors. Patient benefited from the discussion by listening to feedback and giving input on her peer?s stressors and mental health wins. Patient will continue with IOP treatment to help develop healthy skills, promote mood stability, and improve distress tolerance. ] Narrative Note: []
--- NOTE | 2023-12-15 10:10 | BH.SGPN.GN ---
Behaviors/Verbalizations/Mental Status: []Pt alert and oriented, casually dressed and groomed. Eye contact fair. Motor activity appropriate. Speech within normal limits. Affect constricted, mood dysthymic. Thoughts linear, logical, no signs of hallucinations or delusions. Client Response/Progress/Benefit: []Pt participated in group discussion. Group worked together to identify benefits of healthy relationships which included improves mental health, encouragement, motivation, accountability, validation, connection, someone to share experiences with, and support during challenges. Group identified factors that lead to unhealthy relationships which included trauma, lack of communication, and substance use. Benefited from increased insight and awareness of benefits of healthy relationships and factors that contribute to unhealthy relationships. Will continue in IOP to increase consistent use of healthy coping skills, challenge negative thoughts, and prevent decompensation.
--- NOTE | 2023-12-15 11:10 | BH.SGPN.GN ---
Behaviors/Verbalizations/Mental Status: [] Client alert and oriented, casually dressed and groomed. Eye contact good. Motor activity appropriate. Speech within normal limits. Affect congruent, mood dysthymic. Thoughts linear, logical, no signs of hallucinations or delusions. Client Response/Progress/Benefit: [] Client responded well to session, engaged and taking notes throughout. Worked with group to connect components of the experiential activity with characteristics of healthy and unhealthy relationships. Attentive during psychoeducation about characteristics of healthy, unhealthy, and abusive relationships. Client reported she would like to continue to improve with communication in healthier ways as well as vulnerability. Appeared to benefit from identifying current healthy relationship attributes and an area client wants to work on to build healthier relationships. Client to continue IOP to increase healthy coping skills, stabilize mood, and prevent decompensation. Narrative Note: []
== END 2023-12-17 23:59 ==
LOC: BHIOP 08:00
PROVIDERS: PCP Registered Nurse; Referring Provider Psychiatry & Neurology Psychiatry; Visit Provider Psychiatry & Neurology Psychiatry
DX: F33.2 Major depressive disorder, recurrent severe without psychotic features (principal); F41.1 Generalized anxiety disorder; F10.90 Alcohol use, unspecified, uncomplicated; F95.9 Tic disorder, unspecified
CPT/HCPCS: S9480; 90832; 90834; 90837; 90853

== ENCOUNTER 2023-12-18 07:13 | Outpatient (RCR) | payer OTHER, SELFPAY ==
--- NOTE | 2023-12-20 09:00 | BH.SGPN.GN ---
Behaviors/Verbalizations/Mental Status: [Patient was alert and oriented, appropriately dressed and groomed. Eye contact was good, motor activity normal, speech within normal limits. Affect congruent, mood neutral. Thoughts linear, logical, no signs of hallucinations or delusions. Reviewed Patients symptom tracker and the patient reports depressed mood, anxiety/panic attacks, agitation/irritability/anger, self-harm urges, and thoughts/risk of suicide within normal limits.] Client Response/Progress/Benefit: [Patient was engaged and open to the discussion. Patient reported her mood to be ?apathetic?. Patients first win is that she has not napped in a week by keeping herself distracted. Patients second win is that she held herself accountable for not coming to group yesterday and came today instead. Patients stressor is that she thinks her medicine is working but is triggering her eating disorder because she?s fearful of gaining weight. Patient was interactive and respectful with other group members about their mental wins and stressors. Patient benefited from the discussion by listening to feedback and giving input on her peer?s stressors and mental health wins. Patient will continue with IOP treatment to help develop healthy skills, promote mood stability, and improve distress tolerance. ] Narrative Note: []
--- NOTE | 2023-12-20 10:10 | BH.SGPN.GN ---
Behaviors/Verbalizations/Mental Status: [] Eye contact is good. Motor activity is appropriate. Appearance is casual. Speech is Appropriate. Mood is depressed/irritable. Affect is congruent. Thoughts are linear and logical. No evidence of psychosis. Client Response/Progress/Benefit: [] Pt receptive to session AEB contributing to small group discussion, as well as listening attentively to others, and taking notes. Worked with group to brainstorm the positive and negative aspects of stress on physical and mental health as well as the impact of distress on performance, relationships, and mental health. Pt did not complete or verbalize her top stressors. Benefited from increased awareness of good/bad stress as well as how stress impact individuals. Will continue in IOP to prevent decompensation/ re-admission, maintain safety, increase healthy coping, and improve functioning to return to work. Narrative Note: []
--- NOTE | 2023-12-20 11:41 | PCM.BH.PN ---
Progress Note Progress Note: History of Present Illness/Interim History: The patient is a 23-year-old single female with a history of depression, anxiety and chronic tic disorder who is seen in follow-up at the [facility] behavioral health [facility]. I last saw the patient 2 weeks ago and at that time Latuda was increased to 20 mg p.o. daily. According to the staff the patient has regressed somewhat and has been sleeping often throughout the day and seems more depressed and unable or unwilling to apply skills that she is learning in the IOP. When asked about this the patient states that she feels more motivated and feels that her mood is much less depressed than before and she feels the increased Latuda has helped her. The patient states that she has not napped during the day in 1 week. She states that her fianc? says she is better and less depressed in their relationship is better at this point due to her improvement. The patient feels it would take a long time to get where she wants to be and she feels although progress is slow it is adequate. Patient then admits that she could try harder. Patient is supposed to return to work part-time in 1 and half weeks and feels that she will be able to do this. The patient GeneSight testing but is resistant to use of medications and did not bring it with her. She says her passive thoughts of are much less than before. She denies suicidal ideation, plan for suicide, homicidal ideation, hallucinations, delusions or panic attacks. She is sleeping 8 or 9 hours a night and she states that she has not nap during the day in 1 week. She remains using alcohol about 8-9 drinks per week but does not feel that this is a problem although she is willing to try to decrease. The patient admits that she at times does use alcohol as medication for her mood symptoms. Patient feels that she is gaining weight due to Lexapro and not Latuda and she refuses to increase Lexapro for this reason. Current Psychiatric Medications: [] Latuda 20 mg p.o. daily (increased 2 weeks ago); Lexapro 5 mg p.o. daily (x 6 weeks); hydroxyzine 50 mg p.o. at bedtime and as needed for panic attacks. Mental Status Examination: [] The patient is a 23-year-old female who is seen wearing glasses and appears normal for stated age. She is ambulatory with a normal gait and is casually dressed and groomed with good hygiene. She has no psychomotor agitation or retardation. Eye contact is good and speech is normal rate and rhythm and fluent with no pressure. Mood is depressed. Affect is mildly constricted. Thought process is goal-directed and organized. Thought content: There is no evidence of passive thoughts of , suicidal ideation, plan for suicide, homicidal ideation, hallucinations or delusions. Reality testing is intact. Judgment is intact. Insight is fair but limited. Impulsivity is moderate. Diagnoses: [] 1. Major depressive disorder, recurrent, severe without psychosis 2. Generalized anxiety disorder 3. Alcohol use disorder 4. Chronic tic disorder 5. Work and primary support issues Plan: [] The patient will continue the IOP in behavioral health at [facility] as the structure, support, education and group therapy will hopefully prevent worsening of the patient's symptoms. She felt safe during the interview and if it anytime she does not feel safe she will let us know or go to the emergency room. The risk, options, possible complications and side effects of the medications were again discussed with the patient and she understands accepts these. The patient feels Lexapro is causing weight gain but she refuses to discontinue Lexapro and refuses to increase Lexapro. She agrees to increase Latuda to 40 mg p.o. daily with food. She is reluctant to rely on medications. She admits she got GeneSight testing but has not brought in as she is not interested in trying other meds at this time. She will continue to follow-up with her outpatient providers and I will see the patient in follow-up in 2 weeks.
--- NOTE | 2023-12-20 15:34 | BH.MDN ---
Multi-Disciplinary Note Note 30-min Individual: Time Started:: 11:30 Date: 12/20/23 Time Stopped:: 12:00
--- NOTE | 2023-12-21 09:00 | BH.SGPN.GN ---
Behaviors/Verbalizations/Mental Status: [] Eye contact is good. Motor activity is appropriate. Appearance is casual. Speech is Appropriate. Mood is depressed. Affect is flat. Thoughts are linear and logical. No evidence of psychosis. Reviewed daily check in sheet and no reports of suicidal ideations or intent. Client Response/Progress/Benefit: [] Pt participated at times during the group discussion. Attentive. Shared that she feels motivated somewhat today. States I guess I could get some things done today. She is anxious because she is getting close to returning to work and discharging from [facility] level of care. Able to identify the benefits of returning to work which included social aspects, engagement, meaning, helping others out, and distraction. She also believes it will help with motivation and energy. Wants to be more active during the day and monitor her calorie intake. Progress noted. Benefited from group support, encouragement, and feedback. Will continue in [facility] to maintain safety, prevent decompensation, and improve functioning to return to work. Narrative Note: []
--- NOTE | 2023-12-21 10:05 | BH.SGPN.GN ---
Behaviors/Verbalizations/Mental Status: [] Client alert and oriented, casually dressed and groomed. Eye contact good. Motor activity appropriate. Speech within normal limits. Affect congruent, mood euthymic. Thoughts linear, logical, no signs of hallucinations or delusions Client Response/Progress/Benefit: [] Client was an active participant in group discussion and experiential activity. Attentive during psychoeducation on resilience. Participated in interactive discussion with peers on the definition of resilience and where it comes from. Group identified that resiliency can be impacted by; relationships. past experiences, trauma, and current mental health state. Group also worked together to identify the benefits of being resilient and how it is related to mental health. Group with client's input identified increased confidence, ability to make decisions, and adaptability of benefits of being resilient. Able to relate experiential activity of group juggle to topics of resilience. Worked well with peers in small group in which they identified factors that contribute to resilience. Benefited from increased awareness of resilience and the factors that contribute to building resilience. Will continue in IOP to increase overall functioning and prevent decompensation. Narrative Note: []
--- NOTE | 2023-12-21 11:05 | BH.SGPN.GN ---
Behaviors/Verbalizations/Mental Status: [] Client alert and oriented, causually dressed and groomed. Eye contact good Motor activity appropriate. Speech within normal limits. Affect congruent, mood euthymic. Thoughts linear, logical, no signs of hallucinations or delusions Client Response/Progress/Benefit: [] Client responded well to session AEB completing the resilience worksheet provided. Client participated in the discussion and worked cooperatively with group to identify strategies to enhance each of the components discussed. Client reports belief they already use resilience trait of ?accepting change is a part of life? Client shared they feel they are very adaptable. Client stated they would like to continue to develop resilience trait of ?maintain a hopeful outlook.? Client seemed to benefit from discussing strategies for improving personal resilience and identifying resilience traits Client already possesses. Will continue IOP tx to prevent decompensation and increase overall functioning. Narrative Note: []
--- NOTE | 2023-12-25 09:00 | BH.SGPN.GN ---
Behaviors/Verbalizations/Mental Status: [Patient was alert and oriented, appropriately dressed and groomed. Eye contact was good, motor activity normal, speech flat. Affect congruent, mood apathetic. Thoughts linear, logical, no signs of hallucinations or delusions. Reviewed Patients symptom tracker and the patient reports moderate in agitation/irritability/anger, low to moderate in depressed mood, anxiety/panic attacks. Patient does not report symptoms of self-harm urges or thoughts/risk of suicide] Client Response/Progress/Benefit: [Patient was engaged and open to the discussion. Patient reported her mood to be ?pissed?. Patients stressor is that she came off one of her medications because it was making her gain weight and she couldn?t ?handle it anymore?. Patients first win is that she came to group today which is hard for her to do when she is in a bad headspace. Patients second win is that she had a sleep over with her sister and they watched a movie and played [employer]. Patient was interactive and respectful with other group members about their mental wins and stressors. Patient benefited from the discussion by listening to feedback and giving input on her peer?s stressors and mental health wins. Patient will continue with IOP treatment to help develop healthy skills, promote mood stability, and improve distress tolerance. ] Narrative Note: []
--- NOTE | 2023-12-25 10:15 | BH.SGPN.GN ---
Behaviors/Verbalizations/Mental Status: []Patient was alert and oriented, casually dressed and groomed. Eye contact was good, motor activity normal, speech within normal limits. Affect congruent, mood dysthymic. Thoughts linear, logical, no signs of hallucinations or delusion Client Response/Progress/Benefit: []Pt participated in the group discussions AEB providing input and taking notes. Attentive during psychoeducation Goal Setting. Participated during the discussion on common barriers which the group identified as: lack of motivation, making excuses, not feeling good enough, and lack of support. Group also identified benefits sense of purpose, improved self-confidence, more motivation for other goals, and improved mental health. Pt reports struggling specifically with barriers of low motivation and negative self-talk. Benefited from increased awareness of mental health benefits of goals as well as psychoeducation on SMART goal criteria. Will continue in IOP to prevent decompensation, improve daily functioning, and increase ability to manage emotions. Narrative Note: []
--- NOTE | 2023-12-25 11:10 | BH.SGPN.GN ---
Behaviors/Verbalizations/Mental Status: []Pt alert and oriented, casually dressed and groomed. Eye contact fair. Motor activity appropriate. Speech within normal limits. Affect flat, mood depressed. Thoughts linear, logical, no signs of hallucinations or delusions. Client Response/Progress/Benefit: [] Pt was somewhat engaged during discussion and willing to complete the worksheet challenging them to develop a personal SMART goal. Pt chose the goal of only drink alcohol three times this week with no more than 2 beverages when drinking. Pt stated this will make her feel more energized. Pt identified enjoying drinking, drinking to feel better, not wanting to stop, and low motivation as potential barriers. Identified solutions such as opposite action, removing alcohol from home, having supports keep her accountable, and reminding self benefits of decreasing use. Pt receptive to identifying solutions for these barriers and willing to begin working on this goal. Benefited from this group by developing a short-term SMART goal related to mental health. Will continue IOP tx to increase consistent use of healthy coping skills, challenge distortions, assist with transition back to work, and prevent decompensation.
--- NOTE | 2023-12-28 09:05 | BH.SGPN.GN ---
Behaviors/Verbalizations/Mental Status: [] Eye contact is good. Motor activity is appropriate. Appearance is casual. Speech is Appropriate. Mood is depressed. Affect is flat. Thoughts are linear and logical. No evidence of psychosis. Reviewed daily check in sheet and no reports of suicidal ideations or intent Client Response/Progress/Benefit: [] Pt participated when prompted. Attentive. Able to identify mental health wins and healthy habits. Reports that she struggled at times recent however was able to snap myself out of it. Was unable or unwilling to elaborate on the skills that she used to help with emotional dysregulation stating I just did it. Insight that she relies to much on her medications to solve her issues and doesn't put effort into herself and her skills. This led to discussion on long-standing beliefs that she is not good enough which began as the result of her relationship with her father. She was tearful. Peers provided support and empathized with her thoughts and low self-esteem. Some peers also shared experiences similar to hers which was helpful. Progress noted. Benefited from group support, encouragement, and feedback. Will continue in IOP to maintain safety, prevent decompensation, and improve functioing to return to work. Narrative Note: []
--- NOTE | 2023-12-28 15:00 | BH.SGPN.GN ---
Behaviors/Verbalizations/Mental Status: [] Eye contact is good. Motor activity is appropriate. Appearance is casual. Speech is Appropriate. Mood is depressed. Affect is congruent. Thoughts are linear and logical. No evidence of psychosis. Client Response/Progress/Benefit: [] Pt was an active participant in group discussions and activity. Engaged with peers in activity and identifying healthy ways to approach each conflict scenario. Group discussed various conflict resolution skills that can be useful in addressing conflict outside of IOP. Benefited from practicing and learning conflict resolution skills during group activity. Able to identify areas pt wants to work on to improve how pt manages conflict both internally and externally. Expressed wanting to work on challenging herself to be more vulnerable with herself rather than avoiding internal conflict. Will continue in IOP to promote application of behavioral activation skills, improve functioning in daily life, and prevent decompensation. Narrative Note: []
--- NOTE | 2023-12-28 15:34 | BH.MDN ---
Multi-Disciplinary Note Note 45-min Individual: Time Started:: 10:15 Date: 12/28/23 Time Stopped:: 11:00
--- NOTE | 2023-12-29 09:05 | BH.SGPN.GN ---
Behaviors/Verbalizations/Mental Status: [Patient was alert and oriented, appropriately dressed and groomed. Eye contact was good, motor activity normal, speech within normal limits. Affect congruent, mood content. Thoughts linear, logical, no signs of hallucinations or delusions. Reviewed Patients symptom tracker and the patient reports moderate in anxiety/panic attacks, low to moderate in depressed mood, and low in agitation/irritability/anger. Patient does not report symptoms of self-harm urges or thoughts/risk of suicide] Client Response/Progress/Benefit: [Patient was engaged and open to the discussion. Patient reported her mood to be ?content?. Patients first win is that she is wearing jeans today. Patient stated she feels like this isn?t a very good win but was receptive to the thought challenge of her perception of that. Patients second win was she got her nails done for the first time yesterday and feel good about herself with them. Patients stressor is that she goes back to work on Monday and doesn?t want to have a meltdown. Patient was interactive and respectful with other group members about their mental wins and stressors. Patient benefited from the discussion by listening to feedback and giving input on her peer?s stressors and mental health wins. Patient will continue with IOP treatment to help develop healthy skills, promote mood stability, and improve distress tolerance. ] Narrative Note: []
--- NOTE | 2023-12-29 10:10 | BH.SGPN.GN ---
Behaviors/Verbalizations/Mental Status: [] Eye contact is good. Motor activity is appropriate. Appearance is casual. Speech is Appropriate. Mood is depressed. Affect is congruent. Thoughts are linear and logical. No evidence of psychosis Client Response/Progress/Benefit: [] Pt responded well to session AEB contributing to small group discussion, taking notes, and listening attentively to others. Group defined anger and discussed the benefits of managed anger and anger as a secondary emotion. Pt shared perspective on personal benefits of anger as advocating for self. Pt completed worksheet on anger triggers and personal warning signs of anger. Pt identified a common trigger as being treated like I don't matter. Appeared to benefit from increased knowledge of the anger cycle as well as personal triggers. Will continue IOP to maintain safety, increase healthy coping, prevent decompensation, and improve functioning to return to work. Narrative Note: []
--- NOTE | 2023-12-29 11:15 | BH.SGPN.GN ---
Behaviors/Verbalizations/Mental Status: []Client alert and oriented, casually dressed and groomed. Eye contact good. Motor activity appropriate. Speech within normal limits. Affect congruent, mood content. Thoughts linear, logical, no signs of hallucinations or delusions. Client Response/Progress/Benefit: []Pt was engaged throughout AEB contributing to group discussion and self-reflection. Group finished processing cues to anger worksheet. Pt contributed as group brainstormed healthy coping skills for better managing anger which included: music, walking/exercise, taking a break, grounding tools, reflection, and journaling. Pt identified personal anger cycle and was able to make connections on how own thoughts/evaluations of a situation can worsen anger feelings. Stated will work on venting her frustrations to a trusted person rather than minimize and internalize the anger. Pt appeared to benefit from identifying different techniques to manage anger as well as gaining awareness of potential consequences of unmanaged anger. Pt to continue IOP to promote use of healthy coping skills, challenge distortions, and prevent decompensation. Narrative Note: []
--- NOTE | 2024-01-02 10:15 | BH.SGPN.GN ---
Behaviors/Verbalizations/Mental Status: [] Eye contact is good. Motor activity is appropriate. Appearance is casual. Speech is Appropriate. Mood is depressed/irritable. Affect is congruent. Thoughts are linear and logical. No evidence of psychosis. Client Response/Progress/Benefit: [] Pt was an active participant, AEB taking notes and providing input in group discussions and activities. Attentive during psychoeducation. Pt engaged during interactive discussion in which the group defined self-care and discussed its benefits. Group discussed benefits of self-care which included; better self-esteem, increased energy, feeling refreshed, increased motivation, reduce stress, and boost mood. Pt participated in small group where they worked to identify common self-care ?myths? or obstacles. Pt identified thinking I'm not worth it as an obstacle to self-care. Benefited from increased awareness of self-care, its benefits, and the consequences of not utilizing self-care strategies. Will continue IOP to maintain safety, increase healthy coping skills, and prevent decompensation. Narrative Note: []
--- NOTE | 2024-01-02 11:20 | BH.SGPN.GN ---
Behaviors/Verbalizations/Mental Status: []Pt alert and oriented, neatly dressed and groomed. Eye contact good. Motor activity appropriate. Speech within normal limits. Affect flat, mood depressed. Thoughts linear, logical, no signs of hallucinations or delusions. Client Response/Progress/Benefit: [] Pt engaged participant AEB completing self-assessment worksheet and providing input throughout discussion. Pt completed worksheet identifying current self-care practices and what self-care activities Pt wants to start using. Pt selected emotional self-care to begin practicing more consistently. Pt plans to do this by not drinking tonight to avoid. Appeared to benefit from completing the self-care evaluation and gaining insights into current self-care practices, as well as identifying areas in which Pt would like to improve upon. Pt will continue IOP tx to reduce negative self-talk, improve mood stability, and increase use of healthy coping skills. ? Narrative Note: []
--- NOTE | 2024-01-02 15:35 | BH.MDN ---
Multi-Disciplinary Note Note 30-min Individual: Time Started:: 09:20 Date: 01/02/24 Time Stopped:: 09:50
--- NOTE | 2024-01-04 09:03 | BH.SGPN.GN ---
Behaviors/Verbalizations/Mental Status: [] Eye contact is good. Motor activity is appropriate. Appearance is casual. Speech is Appropriate. Mood is depressed. Affect is constricted. Thoughts are linear and logical. No evidence of psychosis. Reviewed daily check in sheet and no reports of suicidal ideations or intent. Client Response/Progress/Benefit: [] Pt participated at times during the group discussion. Attentive. Daily symptom tracked notes 2/5 for anxiety and 2/5 for depression. Able to identify mental health wins and healthy habits. Pt reported current stressor as not being on an anti-depressant due to waiting for insurance approval. Pt reported mental health positive as no drinking any alcohol yesterday. Pt reported additional mental health positive as able to get out of bed after taking a longer walk than she wanted. Benefited from group support, encouragement, and feedback. Will continue in IOP to increase consistent use of healthy coping skill, challenge distorted thoughts, and prevent decompensation.
--- NOTE | 2024-01-04 10:10 | BH.SGPN.GN ---
Behaviors/Verbalizations/Mental Status: []Pt alert and oriented, neatly dressed and groomed. Eye contact good. Motor activity appropriate. Speech within normal limits. Affect flat, mood content. Thoughts linear, logical, no signs of hallucinations or delusions. Client Response/Progress/Benefit: [] Pt was an active participant in group discussion. Attentive during psychoeducation on the CBT [place] (Thoughts, Behaviors, Emotions). Engaged in group discussion on how thoughts and behaviors can contribute to maintaining adverse feelings, such as depression, anxiety, and irritability. Completed personal maintenance cycle for depression and shared that she still struggles with telling herself she is not worth good things. Shared this maintains depression and anxiety cycles. Pt benefited from increased awareness of the basis of CBT therapy as well as specific thoughts that are impacting pt's progress. Will continue in IOP to promote mood stability, increase distress tolerance skills, and improve self-compassion. Narrative Note: []
--- NOTE | 2024-01-04 11:10 | BH.SGPN.GN ---
Behaviors/Verbalizations/Mental Status: []Pt alert and oriented, casually dressed and groomed. Eye contact good. Motor activity appropriate. Speech within normal limits. Affect congruent, mood content. Thoughts linear, logical, no signs of hallucinations or delusions. Client Response/Progress/Benefit: []Pt responded well to session, contributing and attentive throughout discussion. Pt identified a negative thought that has kept them stuck. Pt's thought was I'm not worth the effort.? Pt reported when they think this way, they get depressed and want to numb or avoid, resulting in maladaptive coping. Pt worked to reframe the thought by finding more rational, realistic ways to look at the thoughts and then processed them within group setting. Pt reframed the thought to ?You are a powerful, caring, amazing woman?. Pt appeared to benefit from practicing challenging negative thinking. Pt will continue IOP tx to prevent decompensation, increase mood stability, and continue to reduce distorted thoughts. ? Narrative Note: []
--- NOTE | 2024-01-09 09:00 | BH.SGPN.GN ---
Behaviors/Verbalizations/Mental Status: []Eye contact is fair. Motor activity is appropriate. Appearance is casual. Speech is Appropriate. Mood is euthymic. Affect is constricted. Thoughts are linear and logical. No evidence of psychosis. Reviewed daily check in sheet and denies suicidal thoughts or intention. Client Response/Progress/Benefit: [] Client responded well to session AEB listening to others and sharing thoughts/feelings. Client stated continued stressor is being off an antidepressant because she is still waiting on insurance approval. Client reported mental positive as working on the weekend and being able to manage anxiety and mental health while she was there. Client stated additional mental positive as not napping yesterday after a long weekend at work. Appeared to benefit from support from peers. Will continue IOP tx to continue to help with transition back to work, promote utilization of healthy coping skills, and prevent decompensation. Narrative Note: []
--- NOTE | 2024-01-09 10:05 | BH.SGPN.GN ---
Behaviors/Verbalizations/Mental Status: []Pt alert and oriented, casually dressed and groomed. Eye contact good. Motor activity appropriate. Speech within normal limits. Affect congruent, mood content. Thoughts linear, logical, no signs of hallucinations or delusions. Client Response/Progress/Benefit: []Pt was an active participant in group discussion and activity. Attentive during psychoeducation. Along with peers, pt was able to identify barriers to taking action in their life. Identified several symptoms and stressors that pt feels are holding them back from progress such as negative self-talk, fear of failure, negative core beliefs, isolation, and unhealthy coping/numbing. Stated these things have kept pt from making healthy changes, seeking help, improving relationship with self, and reinforced negative self-image. Pt shared wanting to begin addressing the impact negative self-talk has had on their ability to take action. Benefited from increased self-awareness of obstacles. Will continue IOP tx to improve mood management, promote consistent skill application, and further improve self-confidence. Narrative Note: []
--- NOTE | 2024-01-09 11:10 | BH.SGPN.GN ---
Behaviors/Verbalizations/Mental Status: []Pt alert and oriented, casually dressed and groomed. Eye contact good. Motor activity appropriate. Speech within normal limits. Affect congruent, mood euthymic. Thoughts linear, logical, no signs of hallucinations or delusions. Client Response/Progress/Benefit: [] Pt responded well to session, taking notes and participating in worksheet discussion. Pt connected with the discussion on motion vs action steps, and this helped pt learn how to set goals differently. Pt set a goal to be more compassionate to herself. Pt identified motion steps including: preparing herself for when she has setbacks, asking a support person to hold her accountable, and download positive apps. Pt also made action steps which included: reading affirmations in the mirror and telling herself she is worthy. Appeared to benefit from identifying a small goal to benefit mental health. Will continue IOP tx to promote gains and reinforce healthy coping skills. Narrative Note: []
--- NOTE | 2024-01-10 09:00 | BH.SGPN.GN ---
Behaviors/Verbalizations/Mental Status: [] Pt alert and oriented, neatly dressed and groomed. Eye contact good. Motor activity appropriate. Speech within normal limits. Affect congruent-tearful at times, mood euthymic and proud. Thoughts linear, logical, no signs of hallucinations or delusions. Reviewed pt?s symptom tracker, no risk for suicidal ideation, plan, or intent 01/10/24 Client Response/Progress/Benefit: []Pt responded well to session, attentive and listening to peers. Pt reports feeling hopeful this morning as it is pt's last day of IOP tx and she feels she has made progress even though my journey was a lot of ups and downs. Pt shared her journey from having an admission and feeling hopeless to gaining hope and returning back to work. Pt also feels ready to start outpatient therapy and she reports using coping skills more outside of IOP. Pt appeared to benefit from group support and praise. Pt will discharge from IOP tx today as pt has accomplished her tx goals and no longer meets criteria for IOP level of care. Narrative Note: []
--- NOTE | 2024-01-10 09:00 | BH.COMM ---
Communication Note Communication with Client Communication Note: 01/03/24- This RN submitted a PA request for [employer] on [facility]. At 0900 01/04/24, this nurse called client's [place] health insurance to request status on PA request and was told it could take up to 14 business days and results would be faxed. Insurance faxed a PA denial around 1100 01/04/24 with a comment that a trial of Vilazodone would be approved. Discussed this with client. Client states she would be willing to try Vilazodone. Discussed this with Dr. Pathak via telephone on 01/04/24 and order was received for Vilazodone 10mg by mouth daily. Prescription was called in 01/04/24 at 1230 to [facility] on in [place] per client's request by this RN.
--- NOTE | 2024-01-10 11:10 | BH.SGPN.GN ---
Behaviors/Verbalizations/Mental Status: [] Client alert and oriented, casually dressed and groomed. Eye contact good. Motor activity appropriate. Speech within normal limits. Affect congruent, mood euthymic. Thoughts linear, logical, no signs of hallucinations or delusions. Client Response/Progress/Benefit: [] Client was an active participant throughout AEB contributing to discussion, providing personal examples, and taking notes. Client processed emotions felt in the activity and how they coped in the moment. Client provided input during discussion on the types of support our supports can provide. Client able to identify current support system and barriers that get in the way of using supports by drawing out their own support net. Client reported after identifying what type of supports they receive; they gained awareness that they could benefit from more emotional supports. Client identified steps to achieve this by challenging herself to be more open with communication daily rather than wait until things become unmanageable for her. Client shared increasing emotional supports will help improve her relationships and reduce negative self-talk. Client seemed to benefit from identifying the type of support client needs to work on improving. Client to d/c from IOP treatment on this date and is recommended to continue with outpatient therapy to maintain gains and prevent decompensation. Narrative Note: []
== END 2024-01-10 12:39 | disposition home or self-care (01) ==
LOC: BHIOP 07:13
PROVIDERS: PCP Registered Nurse; Referring Provider Psychiatry & Neurology Psychiatry; Visit Provider Psychiatry & Neurology Psychiatry
DX: F33.2 Major depressive disorder, recurrent severe without psychotic features (principal); F41.1 Generalized anxiety disorder; F10.90 Alcohol use, unspecified, uncomplicated; F95.9 Tic disorder, unspecified; Z79.899 Other long term (current) drug therapy
CPT/HCPCS: S9480; 90832; 90834; 90853